=== PATIENT | female | born 1950 | race Caucasian/White ===

== ENCOUNTER 2023-02-12 07:02 | Outpatient (OUT) | payer MEDICARE, SELFPAY ==
[2023-02-12 07:32] LABS: Basophils Percent Auto 0.8 % (0.2-2.0); Eosinophils Absolute Auto 0.2 10^3/uL (0.0-0.7); Eosinophils Percent Auto 4.3 % (0.9-7.0); Hematocrit 35.6 % (36.0-48.0); Hemoglobin 11.6 g/dL (12.0-16.0); Immature Granulocytes Abs Auto 0.01 10^3/uL (0.00-0.03); Immature Granulocytes Pct Auto 0.3 % (0.0-0.5); Lymphocytes Absolute Auto 1.3 10^3/uL (1.2-3.8); Lymphocytes Percent Auto 32.6 % (20.5-60.0); Mean Corpuscular HGB Conc 32.6 g/dL (29.9-35.2); Mean Corpuscular Hemoglobin 30.7 pg (26.7-34.0); Mean Corpuscular Volume 94.2 fL (81.0-99.0); Mean Platelet Volume 9.3 fL (9.5-13.5); Monocytes Absolute Auto 0.5 10^3/uL (0.3-0.8); Monocytes Percent Auto 13.3 % (1.7-12.0); Neutrophils Percent Auto 48.7 % (43.0-75.0); Platelet Count 262 10^3/uL (150-450); Red Blood Count 3.78 10^6/uL (4.20-5.40); Red Cell Distribution Width 13.3 % (11.0-15.0)
[2023-02-12 08:23] LABS: Alanine Aminotransferase 27 U/L (14-59); Albumin Level 3.5 g/dL (3.4-5.0); Alkaline Phosphatase 66 U/L (46-116); Anion Gap 10.1; Aspartate Amino Transferase 20 U/L (15-37); BUN Creatinine Ratio 31.2; Bilirubin Total 0.7 mg/dL (0.2-1.0); Calcium 9.2 mg/dL (8.5-10.1); Carbon Dioxide 31.8 mmol/L (21.0-32.0); Chloride 103 mmol/L (98-107); Chol HDL Ratio 2.8; Cholesterol 219 mg/dL (<=200); Estimated GFR (African America >60 (>=60); Estimated GFR (Non-African Ame >60 (>=60); Globulin 3.4 g/dL; Glucose 99 mg/dL (74-106); HDL Cholesterol 77 mg/dL (40-60); Potassium 3.9 mmol/L (3.5-5.1); Sodium 141 mmol/L (136-145); Thyroid Stimulating Hormone 4.007 uIU/mL (0.358-3.740); Total Protein 6.9 g/dL (6.4-8.2); Triglycerides 63 mg/dL (<=150); VLDL CHOLESTEROL 12.6 mg/dL
[2023-02-12 09:07] LABS: Estimated Average Glucose 111 mg/dL; Glycohemoglobin A1C 5.5 % (4.5-6.2)
[2023-02-12 09:38] LABS: Free T4 1.03 ng/dL (0.76-1.46)
[2023-02-12 11:29] LABS: Occult Blood Positive
== END 2023-02-12 07:03 | disposition home or self-care (01) ==
LOC: LAB 07:06
PROVIDERS: PCP Family Medicine; Visit Provider Family Medicine
DX: E78.2 Mixed hyperlipidemia (principal); E03.9 Hypothyroidism, unspecified; R73.09 Other abnormal glucose; R53.82 Chronic fatigue, unspecified; Z12.11 Encounter for screening for malignant neoplasm of colon
CPT/HCPCS: 36415; 80053; 80061; 83036; 84439; 84443; 85025; G0328

== ENCOUNTER 2023-05-27 10:18 | Outpatient (OUT) | payer MEDICARE, SELFPAY ==
--- NOTE | 2023-05-27 10:36 | XR_ITS ---
The [address] [address] Patient Name: KAYLIE BARBER MRN: [id number] date: 1950 Sex: F Assigned Patient Location: RAD Current Patient Location: RAD Accession/Order Number: [id number] Exam Date: 05/27/2023 10:38 Report Date: 05/27/2023 11:08 At the request of: ERICA CATHERINE Procedure: XR chest 2V PROCEDURE: XR chest 2V DATE: 05/27/2023 9:38 AM CDT COMPARISONS: CT chest 07/26/2021 CLINICAL INDICATION: 73 years Female Acute Bronchiolitis J21.9 FINDINGS: The cardiomediastinal silhouette and pulmonary vasculature are within normal limits. The lungs are clear. There is no evidence of pleural effusion or pneumothorax. Large hiatal hernia overlies the lower mediastinum XR/XR chest 2V IMPRESSION: No evidence of consolidating infiltrates to suggest pneumonia. Hiatal hernia, stable. Electronically authenticated by: NURY VELAZQUEZ Date: 05/27/2023 11:08
== END 2023-05-27 10:19 | disposition home or self-care (01) ==
PROVIDERS: PCP Family Medicine; Visit Provider Family Medicine
DX: J21.9 Acute bronchiolitis, unspecified (principal); K44.9 Diaphragmatic hernia without obstruction or gangrene
CPT/HCPCS: 71046

== ENCOUNTER 2024-03-17 11:41 | Outpatient (OUT) | payer MEDICARE, SELFPAY ==
[2024-03-17 12:16] LABS: Basophils Percent Auto 0.5 % (0.2-2.0); Eosinophils Absolute Auto 0.1 10^3/uL (0.0-0.7); Hematocrit 36.3 % (36.0-48.0); Hemoglobin 11.8 g/dL (12.0-16.0); Immature Granulocytes Abs Auto 0.01 10^3/uL (0.00-0.03); Immature Granulocytes Pct Auto 0.2 % (0.0-0.5); Lymphocytes Percent Auto 24.5 % (20.5-60.0); Mean Corpuscular HGB Conc 32.5 g/dL (29.9-35.2); Mean Corpuscular Hemoglobin 30.6 pg (26.7-34.0); Mean Platelet Volume 9.7 fL (9.5-13.5); Monocytes Absolute Auto 0.4 10^3/uL (0.3-0.8); Monocytes Percent Auto 10.1 % (1.7-12.0); Neutrophils Absolute Auto 2.5 10^3/uL (1.4-6.5); Neutrophils Percent Auto 61.7 % (43.0-75.0); Platelet Count 293 10^3/uL (150-450); Red Blood Count 3.86 10^6/uL (4.20-5.40); Red Cell Distribution Width 13.2 % (11.0-15.0)
[2024-03-17 12:31] LABS: Estimated Average Glucose 120 mg/dL; Glycohemoglobin A1C 5.8 % (4.5-6.2)
[2024-03-17 12:41] LABS: Free T4 1.09 ng/dL (0.76-1.46)
[2024-03-17 13:05] LABS: Alanine Aminotransferase 26 U/L (14-59); Albumin Globulin Ratio 1.2; Albumin Level 3.7 g/dL (3.4-5.0); Alkaline Phosphatase 67 U/L (46-116); Anion Gap 12.3; Aspartate Amino Transferase 22 U/L (15-37); BUN Creatinine Ratio 24.3; Bilirubin Total 0.8 mg/dL (0.2-1.0); Calcium 9.3 mg/dL (8.5-10.1); Carbon Dioxide 30.2 mmol/L (21.0-32.0); Chloride 102 mmol/L (98-107); Chol HDL Ratio 3.1; Cholesterol 217 mg/dL (<=200); Estimated GFR (African America >60 (>=60); Estimated GFR (Non-African Ame >60 (>=60); Globulin 3.2 g/dL; Glucose 98 mg/dL (74-106); HDL Cholesterol 70 mg/dL (40-60); Potassium 4.5 mmol/L (3.5-5.1); Sodium 140 mmol/L (136-145); Thyroid Stimulating Hormone 2.661 uIU/mL (0.358-3.740); Total Protein 6.9 g/dL (6.4-8.2); Triglycerides 80 mg/dL (<=150)
== END 2024-03-17 11:42 | disposition home or self-care (01) ==
LOC: LAB 11:43
PROVIDERS: PCP Family Medicine; Visit Provider Family Medicine
DX: E78.2 Mixed hyperlipidemia (principal); E78.5 Hyperlipidemia, unspecified; R73.09 Other abnormal glucose
CPT/HCPCS: 36415; 80053; 80061; 83036; 84439; 84443; 85025

== ENCOUNTER 2024-04-25 22:20 | Emergency (ER) | payer MEDICARE, SELFPAY ==
[2024-04-25 22:25] VITALS: BP 159/67; PULSE 72; TEMP 36.4; O2SAT 96; BMI 23.0
--- OUTSIDE RECORDS SUMMARY | 2024-04-25 22:28 | XMS_ITS | CCD ---
Author Organization [facility] CliniSyga Care Team Providers Care Vac Press Operator Name Role Phone FIDELINA, DR MALDONADO Primary Care Unavailable LINDA MCCALL Consulting Unavailable LINDA MCCALL Admitting Unavailable LINDA MCCALL Attending Unavailable TOMMYY, DR MALDONADO Consulting Unavailable TOMMYY, DR MALDONADO Admitting Unavailable TOMMYY, DR MALDONADO Primary Care Unavailable FIDELINA, DR MALDONADO Attending Unavailable WEST, DR KUMAR Garcia Consulting Unavailable FIDELINA, DR MALDONADO Primary Care Unavailable FIDELINA, DR MALDONADO Admitting Unavailable FIDELINA, DR MALDONADO Attending Unavailable FIDELINA, DR MALDONADO Consulting Unavailable LEO FAJARDO Consulting Unavailable LINDA MCCALL Consulting Unavailable FIDELINA, DR MALDONADO Primary Care Unavailable LINDA MCCALL Admitting Unavailable LINDA MCCALL Attending Unavailable FIDELINA, DR MALDONADO Primary Care Unavailable FIDELINA, DR MALDONADO Admitting Unavailable FIDELINA, DR MALDONADO Attending Unavailable FIDELINA, DR MALDONADO Consulting Unavailable FIDELINA, DR MALDONADO Primary Care Unavailable FIDELINA, DR MALDONADO Admitting Unavailable FIDELINA, DR MALDONADO Attending Unavailable FIDELINA, DR MALDONADO Consulting Unavailable SAMIA, DR SHAYNA Cassidy Consulting Unavailable FIDELINA, DR MALDONADO Consulting Unavailable FIDELINA, DR MALDONADO Admitting Unavailable FIDELINA, DR MALDONADO Attending Unavailable FIDELINA, DR MALDONADO Primary Care Unavailable FIDELINA, DR MALDONADO Consulting Unavailable FIDELINA, DR MALDONADO Primary Care Unavailable FIDELINA, DR MALDONADO Admitting Unavailable FIDELINA, DR MALDONADO Attending Unavailable ZIEBER, DR SHAYNA Cassidy Consulting Unavailable FIDELINA, DR MALDONADO Consulting Unavailable FIDELINA, DR MALDONADO Admitting Unavailable FIDELINA, DR MALDONADO Primary Care Unavailable FIDELINA, DR MALDONADO Attending Unavailable Erica Kitchen Primary Care Physician Ramy PHILLIPS Attending Unavailable NILAna Cristina, Ramy Cassidy Referring Unavailable JACQUELINE, Ramy Cassidy Admitting Unavailable REFERRAL, SELF Admitting Unavailable REFERRAL, SELF Attending Unavailable REFERRAL, SELF Referring Unavailable ANTOINE TORRES Consulting Unavaila Antoinette King Consulting Unavailable Antoinette TORRES Consulting Unavailable Antoinette TORRES Consulting Unavailable Ramy PHILLIPS Attending Unavailable Erica Kitchen Referring Unavailable Ramy PHILLIPS Attending Unavailable Erica Kitchen Referring Unavailable Allergies Allergy Classification Reported Allergen(s) Allergy Type Date of Onset Reaction(s) Facility (4 sources) Penicillins; Translations: [penicillins] Drug allergy (disorder) 3 Cutaneous eruption (morphologic abnormality) [facility] Repository (3 sources) Erythromycin; Translations: [erythromycin] Drug Allergy Cutaneous eruption (morphologic abnormality) General Surgery Nill/Said [place] Medications Current Medications Medication Drug Class(es) Dates Sig (Normalized) Sig (Original) diclofenac sodium 75 mg delayed release oral tablet (2 sources) Nonsteroidal Anti-inflammatory Drug Start: 02-26-2023 take 1 tablet by mouth twice daily diclofenac sodium 75 mg Oral EC Tab 75 mg = 1 tab(s), Oral, BID, Refills(s) 0, Pain Start Date: 02/26/23 Status: Ordered ezetimibe 10 mg oral tablet (2 sources) Dietary Cholesterol Absorption Inhibitor Start: 12-25-2019 take 1 tablet by mouth once daily Zetia 10 mg Tab 10 mg = 1 tab(s), Oral, Daily, # 90 tab(s), Refills(s) 3, Pharmacy: [facility]/pharmacy #[id number], 160, cm, 08/30/19 9:30:00 EST, Height/Length Measured, 58.9, kg, 08/30/19 9:30:00 EST, Weight Measured Start Date: 12/25/19 Status: Ordered levothyroxine sodium 0.025 mg oral tablet (2 sources) l-Thyroxine Start: 02-19-2023 take 1 tablet by mouth once daily levothyroxine 25 mcg (0.025 mg) Tab 25 mcg = 1 tab(s), Oral, Daily, Refills(s) 0, Thyroid Start Date: 02/19/23 Status: Ordered pantoprazole 40 mg delayed release oral tablet (2 sources) Proton Pump Inhibitor Start: 02-26-[address] Tab 40 mg = 1 tab(s), Oral, Daily, Refills(s) 0, Control of stomach acid Start Date: 02/26/23 Status: Ordered Problems Active Problems Problem Classification Problem Date Documented Da te Episodic/Chronic Abdominal hernia (2 sources) Hiatal hernia 08-30-2019 Episodic Anxiety disorders (2 sources) Anxiety 02-03-2019 Chronic Deficiency and other anemia (3 sources) Iron deficiency anemia; Translations: [Iron deficiency anemia, unspecified] Onset: 02-26-2023 Episodic Disorders of lipid metabolism (3 sources) Hyperlipidemia, unspecified; Translations: [Hyperlipidemia] Onset: 08-14-2021 02-03-2019 Chronic Esophageal disorders (7 sources) Gastro-esophageal reflux disease without esophagitis; Translations: [Gastroesophageal reflux disease without esophagitis] Onset: 08-14-2021 Resolved: 02-03-2019 Chronic Malaise and fatigue (4 sources) Fatigue Resolved: 02-03-2019 04-12-2019 Episodic Osteoarthritis (1 source) Bilateral primary osteoarthritis of hip; Translations: [BILATERAL PRIM OSTEOARTHRITIS HIP] Onset: 03-17-2022 Chronic Other bone disease and musculoskeletal deformities (2 sources) Osteopenia 05-17-2019 Episodic Other gastrointestinal disorders (1 source) Abnormal feces; Translations: [Other fecal abnormalities] Onset: 02-26-2023 Episodic Other gastrointestinal disorders (2 sources) Occult blood in stools 02-26-2023 Episodic Other non-traumatic joint disorders (3 sources) Pain in unspecified hip; Translations: [PAIN IN UNSPECIFIED HIP] Onset: 03-12-2022 Episodic Other non-traumatic joint disorders (1 source) Pain in right hip; Translations: [PAIN IN RIGHT HIP] Onset: 03-17-2022 Episodic Other upper respiratory infections (1 source) Chronic sinusitis, unspecified; Translations: [CHRONIC SINUSITIS UNSPECIFIED] Onset: 12-23-2021 Chronic Thyroid disorders (2 sources) Hypothyroidism 02-19-2023 Chronic Unclassified (3 sources) CONTACT W/AND (SUSP) EXPOS COVID-19; Translations: [CONTACT W/AND (SUSP) EXPOS COVID-19] Onset: 12-23-2021 Unclassified (1 source) OTHER SPECIFIED COUGH; Translations: [OTHER SPECIFIED COUGH] Onset: 07-19-2021 Unclassified (2 sources) Body mass index 20-24 - normal 02-26-2023 Past or Other Problems Problem Classification Problem Date Documented Da te Episodic/Chronic Acute bronchitis (4 sources) Acute bronchitis, unspecified; Translations: [ACUTE BRONCHITIS UNSPECIFIED] Onset: 07-19-2021 Episodic Allergic reactions (2 sources) Contact dermatitis due to poison saúl Resolved: 02-03-2019 04-03-2019 Episodic Deficiency and other anemia (1 source) Anemia, unspecified; Translations: [ANEMIA UNSPECIFIED] Onset: 08-14-2021 Episodic Diabetes mellitus without complication (1 source) Other abnormal glucose; Translations: [OTHER ABNORMAL GLUCOSE] Onset: 08-14-2021 Episodic Diverticulosis and diverticulitis (2 sources) Diverticula of intestine Resolved: 02-03-2019 04-03-2019 Chronic Fever of unknown origin (1 source) Fever, unspecified; Translations: [FEVER UNSPECIFIED] Onset: 07-19-2021 Episodic Immunizations and screening for infectious disease (2 sources) Exposure to Hepatitis C virus Resolved: 02-03-2019 04-12-2019 Episodic Menopausal disorders (6 sources) Other primary ovarian failure; Translations: [Decreased estrogen level] Onset: 08-13-2021 Resolved: 02-03-2019 Chronic Nonmalignant breast conditions (2 sources) Breast lump Resolved: 03-24-2012 04-12-2019 Episodic Comment on above: right breast Other bone disease and musculoskeletal deformities (1 source) Other specified disorders of bone density and structure, unspecified site; Translations: [OTH D/O BONE DEN STRUCT UNS SITE] Onset: 08-14-2021 Episodic Other gastrointestinal disorders (2 sources) Dysphagia Resolved: 02-03-2019 04-03-2019 Episodic Other nervous system disorders (2 sources) Tremor Resolved: 02-03-2019 04-03-2019 Episodic Other screening for suspected conditions (not mental disorders or infectious disease) (7 sources) Abnormal findings on diagnostic imaging of other parts of musculoskeletal system; Translations: [Encounter for screening for malignant neoplasm of rectum] Onset: 08-14-2021 Resolved: 02-03-2019 Episodic Other skin disorders (4 sources) Localized swelling, mass and lump, trunk; Translations: [LOCALIZD SWELLING MASS AND LUMP TRUNK] Onset: 07-26-2021 Episodic Other upper respiratory disease (2 sources) Allergic rhinitis Resolved: 02-03-2019 04-12-2019 Chronic Other upper respiratory infections (2 sources) Acute maxillary sinusitis Resolved: 04-03-2019 04-12-2019 Episodic Prolapse of female genital organs (2 sources) Cystocele Resolved: 02-03-2019 04-12-2019 Chronic Residual codes; unclassified (1 source) Asymptomatic menopausal state; Translations: [ASYMPTOMATIC MENOPAUSAL STATE] Onset: 08-14-2021 Episodic Residual codes; unclassified (2 sources) Postmenopausal state Resolved: 02-03-2019 04-12-2019 Episodic Unclassified (1 source) CONTACT W/AND (SUSP) EXPOS COVID-19; Translations: [CONTACT W/AND (SUSP) EXPOS COVID-19] Onset: 12-19-2021 Results Test Name Value Interpretation Reference Range Facility [place] Mamm Screen w/CAD if perf and 3D [place] 07-14-2023 MA Mamm Screen w/CAD if perf and 3D [place] Exam Date/Time: 07/12/2023 11:41 EST Reason for Exam: SCREENING Report IMPRESSION: BIRADS 1 NEGATIVE, NORMAL INTERVAL FOLLOW-UP.12 MONTH RECALL. CLINICAL HISTORY: SCREENING. COMPARISON: 07/09/2022. COMMENT: Routine views and tomosynthesis views of both breasts were obtained. The breasts are heterogeneously dense, which may obscure small masses. No dominant breast mass nor neoplastic calcifications are noted. There has been no significant change when compared to the prior exam. The examination was reviewed with Computer Aided Detection. Breast Density: Yes Mammography is very important to your health. The current [employer] and National [employer] guidelines recommends annual mammography beginning at age 40. This facility utilizes a reminder system to ensure all patients receive reminder notifications at the appropriate time based on the recommendations of this exam. Board Certified Radiologists. Accredited by the ACR and FDA. Ordering Provider: REFERRAL, SELF FINAL REPORT Dictated: 07/14/2023 12:50 pm James Ennis M.D. Signed (Electronic Signature): 07/14/2023 12:50 pm Signed by: James Ennis M.D. Transcribed by: ILENE Technologist: SELMA Assessment: BI-RADS Category 1-Negative Recommendation: Normal interval follow-up Normal [facility] Consent for Treatmenton 06-24 Consent for Treatment [id number] Normal [facility] IntraOperative Documentson 0 03-26-2023 IntraOperative Documents [id number]#[id number]:127 Normal [facility] Main OR Intraoperative Recor don 2023 Main OR Intraoperative Record IntraOp Document Type FT Summary Primary Physician: Ramy PHILLIPS MD Finalized Date/Time: 03/23/23 08:15:15 Pt. Name: KAYLIE BARBER /Sex: 1950 Female Med Rec #: [id number] Physician: Ramy PHILLIPS MD Financial #: [id number] Pt. Type: O Room/Bed: Endo 10/21 Admit/Disch: 03/19/23 09:17:02 - 03/19/23 11:20:00 Institution: Case Times FT Entry 1 Patient Times In Room 03/19/23 10:19:00 Out Room 03/19/23 10:49:00 Procedure Times Start 03/19/23 10:22:00 Stop 03/19/23 10:47:00 Anesthesia Times Start 03/19/23 10:19:00 Stop 03/19/23 10:49:00 Time at [place] 03/19/23 10:39:00 Last Modified By: Cecil ELIZONDO, Lana Mccullough 03/19/23 10:47:34 General Comments: EGD stop time at 1024./WILIANRN Colonoscopy start at 1027./CARO CEDENO 03/23/23 Chart opened to review and send charges [facility] CSFA Case Attendance FT Entry 1 Entry 2 Entry 3 Case Attendee Rosanna MORLEY, Eusebio Jacob RN, Jaja Faith Role Performed Anesthesiologist Grab Operator - Primary Staff - Other Promotion Producer Time In 03/19/23 10:19:00 03/19/23 10:19:00 03/19/23 10:19:00 Time Out 03/19/23 10:49:00 03/19/23 10:49:00 03/19/23 10:49:00 Procedure EGD AND COLONOSCOPY(.) EGD AND COLONOSCOPY(.) EGD AND COLONOSCOPY(.) Comments Dr. Rasmussen is supervising Last Modified By: Cecil ELIZONDO, Lana Jacob RN, Lana Jacob RN, Lana Mccullough 03/19/23 10:47:40 03/19/23 10:47:40 03/19/23 10:47:40 Entry 4 Entry 5 Case Attendee Flavia Vicente MD, Ramy Cassidy Role Performed Scrub - Primary Surgeon - Primary Time In 03/19/23 10:19:00 03/19/23 10:19:00 Time Out 03/19/23 10:49:00 03/19/23 10:49:00 Procedure EGD AND COLONOSCOPY(.) EGD AND COLONOSCOPY(.) Comments Last Modified By: Lana Jacob RN, RN, Kristin N 03/19/23 10:47:40 03/19/23 10:47:40 Perioperative Protocols FT Pre-Care Text: Implements protective measures prior to operative or invasive procedure, confirms identity before the operative or invasive procedure, verifies operative procedure, surgical site, and laterality Entry 1 Procedure(s) EGD AND COLONOSCOPY(.) Patient Identity Birthday, ID Band Verified (select at Check, Patient least 2): Participation Consents / H and P Anesthesia Consent, Operative Site N/A Verified HandP, Surgery/Procedure Marking Verified Consent Surgical Site No Laterality Verified n/a Verified Procedure Verified Yes Correct Patient Yes Position Verified Availability Equipment, Medication Prep Dry n/a Verified (If Applicable) PreOp Antibiotic No Time Out Eusebio Burroughs Given Participants Cecil Kinney RN, Abdelrahman Taveras Kirstyn K, Sparks, Micala E, NILL MD, Ramy Cassidy Time Out Complete 03/19/23 10:19:00 Outcomes Met? Yes Last Modified By: Lana Jacob RN 03/19/23 10:21:04 Post-Care Text: The patient is free from signs and symptoms of injury caused by extraneous objects Allergy Information FT Pre-Care Text: Verifies allergies Entry 1 Allergies Reviewed? Yes Allergies Reviewed Self/Patient With Outcomes Met? Yes Last Modified By: Lana Jacob RN 03/19/23 10:21:10 Post-Care Text: The patient received appropriate medication(s) safely administered during the perioperative period Surgical Procedures FT Entry 1 Procedure Description Procedure EGD AND COLONOSCOPY Modifiers . Surgeon Description EGD. Colonoscopy. Primary Procedure Yes Primary Surgeon Ramy PHILLIPS MD Start 03/19/23 10:22:00 Stop 03/19/23 10:47:00 Anesthesia Type General Surgical Service General Wound Class 2 - Clean-Contaminated Last Modified By: Lana Jacob RN 03/19/23 10:47:36 General Case Data FT Pre-Care Text: Classifies surgical wound, implements aseptic technique, initiates traffic control Entry 1 Case Information OR ENDO 1 FT Case Level Level 2 Wound Class 2 - Clean-Contaminated Specialty General ASA Class 2 Preop Diagnosis Occult stool, anemia Postop Same As Preop No Postop Diagnosis EGD- Large Hiatal Outcomes Met? Yes Hernia. Colonoscopy- Diverticulosis. Last Modified By: Lana Jacob RN 03/19/23 10:47:07 Post-Care Text: The patient is free from signs and symptoms of infection Skin Assessment (Pre Procedure) FT Pre-Care Text: Implements protective measures to prevent skin/ tissue injury due to thermal or mechanical sources Evaluates for signs and symptoms of physical injury to skin and tissue Entry 1 Skin Integrity Intact, [place], Warm, and Skin Abnormality Yes Dry Outcomes Met? Yes Last Modified By: Lana Jacob RN 03/19/23 10:22:00 Post-Care Text: The patient is free from signs and symptoms of injury caused by extraneous objects Patient Positioning FT Pre-Care Text: Identifies physical alterations that require additional precautions for procedure-specific positioning, verifies presence of prosthetics or corrective devices, positions the patient, evaluates the patient for signs and sym (more content not included)... Normal [facility] Reminderson 2023 Reminders - From: Tanna Owens LPN To: N - Clinical; Sent: 2023 08:58:45 EDT Show up: 02/17/2033 07:00:00 EDT Subject: colonoscopy recall Due Date/Time: 03/19/2033 07:00:00 EDT Reminder/Recall Patient due for screening colonoscopy 03/19/2033. Normal [facility] Consenton 03-22-2023 Consent [id number]:127 [facility] Discharge Instructionson Discharge Instructions [id number]#1.00CD:127 [facility] Postoperative Documentson Postoperative Documents [id number]#[id number]:127 Normal [facility] Colonoscopy Procedure Report on 03-19-2023 Colonoscopy Procedure Report Patient: KAYLIE BARBER Age: 72 years Sex: Female : 1950 Associated Diagnoses: None Author: Ramy PHILLIPS MD Pre-Procedure Procedure Date 03/19/2023 11:10:00 . Procedure Type: Colonoscopy. Procedure provider Performed by Ramy PHILLIPS MD. Referred by Erica Kitchen MD. Current history and physical Documented on chart. Colorectal neoplasm risk assessment Average risk. Informed Consent After discussing the rationale, risks and benefits, and alternatives to this procedure, the patient provided signed consent for the procedure. Pre-procedure diagnosis: Iron deficiency anemia, unexplained. ASA Classification: Class III. . Monitoring: See anesthesia record. . Procedure The procedure was performed in the hospital. See anesthesia record for sedation given during procedure. Rectal exam was performed and was normal. The patient was positioned starting in the left lateral decubitus position. Endoscope type used was an adult-size. The endoscope was lubricated then introduced through the anus. The scope was advanced to the cecum verified by photographing the appendiceal orifice, verified by photographing the ileocecal valve. No difficulties encountered during the procedure. The bowel preparation quality was good and was adequate (see polyps greater than or equal to 6 millimeters). The patient tolerated the procedure well. Findings Diverticulosis was identified in the sigmoid colon. The severity of the diverticulosis is moderate. Images Procedure images: Rec_hd_video_ [id number] Rec_hd_video_ [id number].jpg ileocecal valve appendiceal orifice Rec_hd_video_ [id number].jpg . Post-Procedure Complications: none. Estimated blood loss: none. Specimens: none. Devices/ implants: none left in place. Impression and Plan Diagnosis: Colon, diverticulosis (UOH10-NL K57.30, Discharge, Medical). Course: Progressing as expected. Recommendations: Repeat colonoscopy:: In 10 years. Follow-up:: if problems/questions.. Diet:: Regular diet. Medication resumption:: Continue current medications. Return to activities:: After 24 hours. Education and Follow-up: Counseled: Family. [facility] Comment on above: Other Comment: Nicole moyer Attachment - attachment storage system not supported [id number] Can be viewed in source systemMissing Attachment - attachment storage system not supported [id number] Can be viewed in source systemMissing Attachment - attachment storage system not supported [id number] Can be viewed in source systemMissing Attachment - attachment storage system not supported [id number] Can be viewed in source systemMissing Attachment - attachment storage system not supported [id number] Can be viewed in source system Consent for Treatmenton 02-21 Consent for Treatment [id number]#[id number]:127 [facility] Discharge Instructionson Discharge Instructions KAYLIE BARBER :1950 Visit Date:03/19/2023 Inpatient Discharge Instructions Your Care Team Admitting Physician - Ramy PHILLIPS MD Referring Physician - JACQUELINE ANTHONY, Ramy Cassidy Reason for Your Visit OCULT STOOL & ANEMIA Your Diagnosis Colon, diverticulosis Hernia, hiatal This Is Your Medications List diclofenac (diclofenac sodium 75 mg Oral EC Tab) ezetimibe (Zetia 10 mg Tab) levothyroxine (levothyroxine 25 mcg (0.025 mg) Tab) pantoprazole (Pantoprazole [address] Tab) Procedure History Colonoscopy (03/19/2023), Esophagogastroduodenoscopy (03/19/2023), EGD - Esophagogastroduodenoscopy (12/05/2018), Total hysterectomy via vaginal approach (1994), Colonoscopy, Colonoscopy, laporoscopy, Tonsillectomy. What to do next Instructions From Your Doctor Event Name Event Result Discharge Activity Resume normal activities in 24 hours, Arrange for a responsible adult supervision for 24 hours Discharge Restrictions No driving for 24 hrs, Do not operate machinery or tools, Do not make important decisions for 24 hours, Do not drink alcoholic beverages for 24 hours Discharge Diet(s) Other: high fiber Call Your Doctor For Persistent or heavy bleeding, Temperature above 101.5 degrees, Redness, swelling, or pus at operative site, Severe pain at the operative site, Persistent vomiting Pharmacy Information [facility] Discharge Instructions Discharge Instructions New Follow Up Appointments after Discharge Follow Up with Ramy PHILLIPS When: Only if needed Where: [facility] [address], [address] [place] [id number]- Business (1) Medications What How Much When Instructions Next Dose Unchanged diclofenac (diclofenac sodium 75 mg Oral EC Tab) 1 Tablets By Mouth 2 times a day Unchanged ezetimibe (Zetia 10 mg Tab) 1 Tablets By Mouth Every day Unchanged levothyroxine (levothyroxine 25 mcg (0.025 mg) Tab) 1 Tablets By Mouth Every day Unchanged pantoprazole (Pantoprazole [address] Tab) 1 Tablets By Mouth Every day Test Results No qualifying data available. Allergies Erythromycin ES (Rash) penicillins (Rash) Problems Ongoing - Any problem that you are currently receiving treatment for. Anxiety BMI 23.0-23.9, adult Chronic fatigue Hiatal hernia with gastroesophageal reflux Hyperlipidemia Hypothyroidism Iron deficiency anemia Osteopenia Positive fecal occult blood test Historical - Any problem that you are no longer receiving treatment for. Abnormal Pap smear of vagina Acute maxillary sinusitis Allergic rhinitis Asymptomatic postmenopausal state Breast mass Chronic GERD Diverticulosis Dysphagia Estrogen deficiency Exposure to hepatitis C Fatigue Female cystocele Hernia, hiatal Poison saúl Tremor Education Materials Endoscopy Care After Procedure Please read the instructions outlined below and refer to this sheet in the next few weeks. These discharge instructions provide you with general information on caring for yourself after you leave the hospital. Your doctor may also give you specific instructions. While your treatment has been planned according to the most current medical practices available, unavoidable complications occasionally occur. If you have any problems or questions after discharge, please call your doctor. ACTIVITY ? You may resume your regular activity but move at a slower pace for the next 24 hours. ? Take frequent rest periods for the next 24 hours. ? Walking will help expel (get rid of) the air and reduce the bloated feeling in your abdomen. ? No driving for 24 hours (because of the anesthesia (medicine) used during the test). ? You may shower. ? Do not sign any important legal documents or operate any machinery for 24 hours (because of the anesthesia used during the test). NUTRITION ? Drink plenty of fluids. ? You may resume your normal diet. ? Begin with a light meal and progress to your normal diet. ? Avoid alcoholic beverages for 24 hours or as instructed by your caregiver. MEDICATIONS ? You may resume your normal medications unless your caregiver tells you otherwise. WHAT YOU CAN EXPECT TODAY ? You may experience abdominal discomfort such as a feeling of fullness or ?gas? pains. FOLLOW-UP ? Your doctor will discuss the results of your test with you. SEEK IMMEDIATE MEDICAL ATTENTION IF ANY OF THE FOLLOWING OCCUR: ? Excessive nausea (feeling sick to your stomach) and/or vomiting. ? Severe abdominal pain and distention (swelling). ? Trouble swallowing. ? Temperature over 100 F (37.8? C). ? Rectal bleeding or vomiting of blood. Document Released: 2005 Document Re-Released: 01/31/2007 ExitCare? Patient Information ?2009 Critical Links. Colonoscopy Care After Surgery Please read the instructions outlined below and refer to this sheet in the next few weeks. These d (more content not included)... Normal [facility] Comment on above: Result Comment: Elec tronically Signed By: Abdoul ELIZONDO, Meliza Benton\.br\Date and Time Signed: 03/19/23 11:00 EDT Daniel 03-19-2023 Esophagogastroduodenoscop y Patient: KAYLIE BARBER Age: 72 years Sex: Female : 1950 Associated Diagnoses: None Author: Ramy PHILLIPS MD Pre-Procedure Procedure Date 03/19/2023 11:15:00 . Procedure Type: Esophagogastroduodenoscopy . Procedure provider Performed by Ramy PHILLIPS MD. Referred by Erica Kitchen MD. Current history and physical Documented on chart. Pre-procedure diagnosis: iron deficiency anemia. ASA Classification: Class III. . Monitoring: See anesthesia record. . Procedure The procedure was performed in the hospital. See anesthesia record for sedation given during procedure. The patient was positioned starting in the left lateral decubitus position. Endoscope type used was an adult-size, advanced to the 2nd portion of the duodenum. No difficulty was encountered during the procedure. Views were excellent. The patient tolerated the procedure well. Findings Examination of the esophagus revealed a normal esophagus. A hiatal hernia was identified 8 cm in length. The hernia is described as a sliding hernia. Examination of the duodenum revealed a normal duodenum. Images Procedure images: hiatal hernia . Post-Procedure Complications: none. Estimated blood loss: none. Impression and Plan EGD: Diagnosis: Hernia, hiatal ([id number] K44.9, Discharge, Medical). Course: Progressing as expected. Education and Follow-up: Counseled: Family. [facility] Comment on above: Other Comment: Nicole moyer Attachment - attachment storage system not supported [id number] Can be viewed in source system Inpatient Patient Summaryon 03-19-2023 Inpatient Patient Summary (Inserted Imag e. Unable to display) [address] [address] [facility] Clinical Discharge Instructions PERSON INFORMATION Name: KAYLIE BARBER PHYSICIANS Admitting Physician: Ramy PHILLIPS MD Attending Physician: Ramy PHILLIPS MD PCP: Erica Kitchen MD Discharge Diagnosis: Colon, diverticulosis; Hernia, hiatal Comment: PATIENT EDUCATION INFORMATION Instructions: Medication Leaflets: Follow up: With: Address: When: Ramy PHILLIPS [address] [facility], [address], [place] [id number] Business (1) , only if needed MEDICATION LIST Medications to Continue with No Changes Other Medications diclofenac (diclofenac sodium 75 mg Oral EC Tab) 1 Tablets By Mouth 2 times a day. ezetimibe (Zetia 10 mg Tab) 1 Tablets By Mouth every day. Refills: 3. levothyroxine (levothyroxine 25 mcg (0.025 mg) Tab) 1 Tablets By Mouth every day. pantoprazole (Pantoprazole [address] Tab) 1 Tablets By Mouth every day. Comment: [facility] Main OR PACU I Recordon 02-21 Main OR PACU I Record PACU Phase I Docum ent Type FT Summary Primary Physician: Ramy PHILLIPS MD Finalized Date/Time: 03/19/23 11:32:06 Pt. Name: KAYLIE BARBER Marleny Rea/Sex: 1950 Female Med Rec #: [id number] Physician: Ramy PHILLIPS MD Financial #: [id number] Pt. Type: O Room/Bed: [facility] 10/21 Admit/Disch: 03/19/23 09:17:02 - 03/19/23 11:20:00 Institution: Case Times PACU I FT Pre-Care Text: Identifies barriers to communication and implements measures to provide psychological support Develops individualized plan of care, and ensures continuity of care Maintains patient's dignity and privacy, and maintains patient confidentiality Identifies and reports philosophical, cultural, and spiritual beliefs and values Identifies individual values and wishes concerning care Implements aseptic technique, and administers prescribed antibiotic therapy and immunizing agents as ordered Evaluates postoperative tissue perfusion Implements thermoregulation measures, and monitors body temperature Evaluates postoperative respiratory status Evaluates postoperative cardiac status Evaluates postoperative neurological status Assesses pain control, collaborated in initiating patient-controlled analgesia and implements alternative methods of pain control Verifies allergies, administers prescribed medications and solutions, evaluates response to medications Entry 1 In PACU I 03/19/23 10:50:00 Discharge from PACU 03/19/23 11:20:00 I Outcomes Met? Yes Last Modified By: Abdoul ELIZONDO, Meliza Benton 03/19/23 11:31:52 Post-Care Text: The patient demonstrates knowledge of the expected response to the operative or invasive procedure The patient's care is consistent with the individualized perioperative plan of care The patient's right to privacy is maintained The patient's value system, lifestyle, ethnicity, and culture are considered, respected, and incorporated into the perioperative plan of care The patient participates in decisions affecting his or her perioperative plan of care The patient is free from signs and symptoms of infection The patient has wound/tissue perfusion consistent with or improved from baseline levels established preoperatively The patient is at or returning to normothermia at the conclusion of the immediate postoperative period The patient's respiratory function is consistent with or improved from baseline levels established preoperatively The patient's cardiovascular status is consistent with or improved from baseline levels established preoperatively The patient's cardiovascular status is consistent with or improved from baseline levels established preoperatively The patient demonstrates and/or reports adequate pain control throughout the perioperative period The patient received appropriate medication(s), safely administered during the perioperative period Acuity Level PACU I FT Entry 1 Start Time 03/19/23 10:50:00 Stop Time 03/19/23 11:20:00 Acuity Level Acuity Level I Last Modified By: Meliza Schreiber RN 03/19/23 11:32:02 Finalized By: Meliza Schreiber RN Document Signatures Signed By: Meliza Schreiber RN 03/19/23 11:32 [facility] Main OR Preoperative Recordo n 03-19-2023 Main OR Preoperative Record Holding Area Document Type FT Summary Primary Physician: Ramy PHILLIPS MD Finalized Date/Time: 03/19/23 09:35:37 Pt. Name: KAYLIE BARBER /Sex: 1950 Female Med Rec #: [id number] Physician: Ramy PHILLIPS MD Financial #: [id number] Pt. Type: O Room/Bed: Endo 10/21 Admit/Disch: 03/19/23 09:17:02 - Institution: Case Times Holding FT Pre-Care Text: Verifies consent for planned procedure, identifies individual values and wishes concerning care, includes family members in perioperative teaching Secures patient's records' belongings, and valuables, maintains patient's dignity and privacy, and maintains patient confidentiality Entry 1 In Holding 03/19/23 09:20:00 Outcomes Met? Yes Last Modified By: Steffanie Chinchilla RN 03/19/23 09:22:45 Post-Care Text: The patient participates in decisions affecting his or her perioperative plan of care The patient's right to privacy is maintained Surgery Checklist FT Entry 1 Patient Birthday, ID Band Procedure History and Physical, Identification: Check, Patient Verification: Surgical Consent, With Participation Patient NPO after Midnight: Yes Results Reviewed Light yellow Comments: Personal Items: Glasses, Jewelry Personal Items Glassess, earrings, Comment: rings Limitations: Vision Complaints of Pain: No Pain Comment: Denies Operative Site n/a Marking: Availability Equipment Verified: Does Patient Smoke No Patient states Yes Comment - Adult Leo- postop adult Supervision supervision available Case Cancelled in No Holding Area see comments below for reason Last Modified By: Steffanie Chinchilla RN 03/19/23 09:23:50 General Comments: Pt completed prep before midnight and remained NPO since/WILIANRN Finalized By: Steffanie Chinchilla RN Document Signatures Signed By: Steffanie Chinchilla RN 03/19/23 09:35 [facility] Outpatient Surgery Discharge Instructionon 03-19-2023 Outpatient Surgery Discharge Instruction [place] [id number] Patient Discharge Instructions PERSON INFORMATION Name: KAYLIE BARBER Date of : 1950 Current Date: 03/19/2023 10:49:39 PHYSICIANS Admitting Physician: Ramy PHILLIPS MD Discharge Diagnosis: Colon, diverticulosis; Hernia, hiatal KAYLIE BARBER has been given the following list of follow-up instructions, prescriptions, and patient education materials: PATIENT FOLLOW-UP INFORMATION Diet: Other: high fiber Discharge Activity: Resume normal activities in 24 hours, Arrange for a responsible adult supervision for 24 hours Discharge Restrictions: No driving for 24 hrs, Do not operate machinery or tools, Do not make important decisions for 24 hours, Do not drink alcoholic beverages for 24 hours Call Your Doctor For: Persistent or heavy bleeding, Temperature above 101.5 degrees, Redness, swelling, or pus at operative site, Severe pain at the operative site, Persistent vomiting IF UNABLE TO CONTACT YOUR PHYSICIAN AND YOU FEEL IT IS AN EMERGENCY, GO TO THE NEAREST EMERGENCY ROOM OR CALL 911 ISUNIL KERRYLIN H, have received the attached patient education materials/instructions and have verbalized understanding: May we do a follow up call? Yes No I was present when discharge instructions were given ____ Patient Signature _ Date Clinican/Nurse Signature Date Follow up: With: Address: When: Ramy Vogel, [address], [facility] [address] [place] [address] Business (1) , only if needed Pharmacy Information: [facility] Red You may receive a survey from [employer] asking you to rate your care experience. Your feedback is important and will help us understand what we do well and how we can improve the quality of care we provide to you, your loved ones and our community. It?s an honor to serve you. Thank you for choosing [facility] HERE ARE THE MEDICATION CHANGES THAT OCCURRED DURING YOUR HOSPITAL STAY Medications to Continue with No Changes Other Medications diclofenac (diclofenac sodium 75 mg Oral EC Tab) 1 Tablets By Mouth 2 times a day. ezetimibe (Zetia 10 mg Tab) 1 Tablets By Mouth every day. Refills: 3. levothyroxine (levothyroxine 25 mcg (0.025 mg) Tab) 1 Tablets By Mouth every day. pantoprazole (Pantoprazole [address] Tab) 1 Tablets By Mouth every day. PATIENT EDUCATION INFORMATION Instructions: Medication Leaflets: [facility] Progress Note-Physicianon Progress Note-Physician Patient: Annie BARBER Age: 72 years Sex: Female : 1950 Associated Diagnoses: None Author: Jose Eduardo Rasmussen Jr., DO Postoperative Information Postoperative disposition: Postoperative disposition: Home. Optimetrix number: Optimetrix number [id number]. Anesthetic utilized: General. Physical Examination Vital Signs 03/19/2023 11:15 EDT Heart Rate Monitored 68 bpm Respiratory Rate Monitored 15 br/min Systolic Blood Pressure 104 mmHg Diastolic Blood Pressure 67 mmHg SpO2 96 % 03/19/2023 11:05 EDT Heart Rate Monitored 70 bpm Respiratory Rate Monitored 19 br/min Systolic Blood Pressure 97 mmHg Diastolic Blood Pressure 63 mmHg SpO2 95 % 03/19/2023 11:00 EDT Heart Rate Monitored 69 bpm Respiratory Rate Monitored 15 br/min Systolic Blood Pressure 96 mmHg Diastolic Blood Pressure 51 mmHg LOW SpO2 94 % 03/19/2023 10:55 EDT Heart Rate Monitored 74 bpm Respiratory Rate Monitored 11 br/min Systolic Blood Pressure 87 mmHg LOW Diastolic Blood Pressure 48 mmHg LOW SpO2 93 % 03/19/2023 10:50 EDT Temperature Temporal Artery 36.6 DegC Heart Rate Monitored 72 bpm Respiratory Rate Monitored 16 br/min Systolic Blood Pressure 87 mmHg LOW Diastolic Blood Pressure 45 mmHg LOW SpO2 94 % Pain Assessment: Controlled. General: Awake, Alert, Appropriate. Respiratory: Adequate air exchange, Non-labored. Cardiovascular: Stable, Normal peripheral perfusion. Neurological: Neurologic exam at baseline. No changes.. Assessment Anesthetic outcome No anesthetic complications noted. No nausea/vomiting. Review / Management Condition: Stable. Plan Transfer/Discharge: Transfer/Discharge Discharge when meets criteria ( From PACU to Ambulatory Surgery Unit, and To home ). [facility] Comment on above: Result Comment: Elec tronically Signed By: Jose Eduardo Rasmussen Jr., DO\.br\Date and Time Signed: 03/19/23 13:08 EDT Progress Note-Physician Patient: Annie BARBER Age: 72 years Sex: Female : 1950 Associated Diagnoses: None Author: Jose Eduardo Rasmussen Jr., DO Preoperative Information Anesthesia history: Patient history: No prior anesthetic problems. Informed consent: Signed by patient. Re-evaluation prior to induction: Initial evaluation reviewed: No significant change. Review of Systems Respiratory: Negative except as documented in history of present illness. Cardiovascular: Negative except as documented in history of present illness. Health Status Allergies: Allergic Reactions (Selected) Severity Not Documented Erythromycin ES- Rash. Penicillins- Rash., Allergies (2) Active Reaction Erythromycin ES Rash penicillins Rash Current medications: (Selected) Inpatient Medications Ordered Lactated Ringers IV Payton 1000 mL 1,000 mL: 1,000 mL, IV, 100 mL/hr, Routine, Start date 03/19/23 9:09:00 EDT, 10 hour(s), Total volume (mL): 1,000, 60.7 kg, 1.64, m2 Sodium Chloride 0.9% IV Payton 1000 mL 1,000 mL: 1,000 mL, IV, 20 mL/hr, Routine, Start date 03/19/23 6:43:00 EDT, 50 hour(s), Total volume (mL): 1,000, 60.7 kg, 1.64, m2 Prescriptions Prescribed Zetia 10 mg Tab: 10 mg = 1 tab(s), Oral, Daily, # 90 tab(s), Refills(s) 3, Pharmacy: [facility]/pharmacy #[id number], 160, cm, 08/30/19 9:30:00 EST, Height/Length Measured, 58.9, kg, 08/30/19 9:30:00 EST, Weight Measured Documented Medications Documented Pantoprazole [address] Tab: 40 mg = 1 tab(s), Oral, Daily, Refills(s) 0, Control of stomach acid diclofenac sodium 75 mg Oral EC Tab: 75 mg = 1 tab(s), Oral, BID, Refills(s) 0, Pain levothyroxine 25 mcg (0.025 mg) Tab: 25 mcg = 1 tab(s), Oral, Daily, Refills(s) 0, Thyroid, Home Medications (4) Active diclofenac sodium 75 mg Oral EC Tab 75 mg = 1 tab(s), Oral, BID levothyroxine 25 mcg (0.025 mg) Tab 25 mcg = 1 tab(s), Oral, Daily Pantoprazole [address] Tab 40 mg = 1 tab(s), Oral, Daily Zetia 10 mg Tab 10 mg = 1 tab(s), Oral, Daily , Medications (2) Active Scheduled: (0) Continuous: (2) Lactated Ringers 1,000 mL 1,000 mL, IV, 100 mL/hr Sodium Chloride 0.9% 1,000 mL 1,000 mL, IV, 20 mL/hr PRN: (0) Problem list: All Problems Anxiety / SNOMED CT 73730549 / Confirmed BMI 23.0-23.9, adult / SNOMED CT 9675663254 / Confirmed Chronic fatigue / SNOMED CT 786793893 / Confirmed Hiatal hernia with gastroesophageal reflux / SNOMED CT 3848090315 / Confirmed Hyperlipidemia / SNOMED CT 65179408 / Confirmed Hypothyroidism / SNOMED CT 43078087 / Confirmed Iron deficiency anemia / SNOMED CT 170830970 / Confirmed Osteopenia / SNOMED CT 292556452 / Confirmed Positive fecal occult blood test / SNOMED CT 61691526 / Confirmed Resolved: Abnormal Pap smear of vagina / SNOMED CT 9038274564 Resolved: Acute maxillary sinusitis / SNOMED CT 623076624 Resolved: Allergic rhinitis / SNOMED CT 008461563 Resolved: Asymptomatic postmenopausal state / SNOMED CT 372170410 Resolved: Breast mass / SNOMED CT 744448449 right breast Resolved: Chronic GERD / SNOMED CT 770536296 Resolved: Diverticulosis / SNOMED CT 738265828 Resolved: Dysphagia / SNOMED CT 52377953 Resolved: Estrogen deficiency / SNOMED CT 219736957 Resolved: Exposure to hepatitis C / SNOMED CT 2408013320 Resolved: Fatigue / SNOMED CT 817931956 Resolved: Female cystocele / SNOMED CT 346493128 Resolved: Hernia, hiatal / SNOMED CT 130152437 Resolved: Poison saúl / SNOMED CT 5523544280 Resolved: Tremor / SNOMED CT 22491864 Histories Past Medical History: Resolved Breast mass (277093399): Resolved on 03/24/2012 at 62 years. Comments: 03/28/2012 EDT 7:55 EDT - [employer]CH[employer]IC[employer], Penelope right breast Tremor (24761643): Resolved on 02/03/2019 at 68 years. Dysphagia (79971240): Resolved on 02/03/2019 at 68 years. Chronic GERD (481797659): Resolved on 02/03/2019 at 68 years. Poison saúl (3153610696): Resolved on 02/03/2019 at 68 years. Allergic rhinitis (541653965): Resolved on 02/03/2019 at 68 years. Diverticulosis (578702253): Resolved on 02/03/2019 at 68 years. Exposure to hepatitis C (6757843372): Resolved on 02/03/2019 at 68 years. Fatigue (545994278): Resolved on 02/03/2019 at 68 years. Asymptomatic postmenopausal state (219315446): Resolved on 02/03/2019 at 68 years. Estrogen deficiency (077803381): Resolved on 02/03/2019 at 68 years. Female cystocele (395631298): Resolved on 02/03/2019 at 68 years. Abnormal Pap smear of vagina (4471310348): Resolved on 02/03/2019 at 68 years. Acute maxillary sinusitis (240961383): Resolved on 04/03/2019 at 69 years. Hernia, hiatal (561238502): Resolved. Procedure history: EGD - Esophagogastroduodenoscopy (8373745997) on 12/05/2018 at 68 Years. Colonoscopy (838209515) on 05/07/2016 at 66 Years. Total hysterectomy via vaginal approach (0993780806) in 1994 at 45 Years. Tonsillectomy (835604416). Comments: 03/24/2012 16:49 DAMIÁN Lopez RN, Julia lyon 1955 laporoscopy. Comments: 03/24/2012 16:49 DAMIÁN Lopez RN, (more content not included)... [facility] Comment on above: Result Comment: Elec tronically Signed By: Jose Eduardo Rasmussen Jr., DO\.timi\Date and Time Signed: 03/19/23 09:10 EDT Pre-Certification Formon Pre-Certification Form [id number]#[id number]:127 [facility] Ambulatory Visit Summaryon 0 02-26-2023 Ambulatory Visit Summary SUNILJOSSUELENA Farmer :1950 Visit Date:02/26/2023 Ambulatory Visit Instructions Your Diagnosis Positive fecal occult blood test Hiatal hernia with gastroesophageal reflux, Gastro-esophageal reflux disease without esophagitis Iron deficiency anemia Your Care Team Attending Physician - JACQUELINE ANTHONY, Ramy Cassidy Primary Care Physician - Fidelina ANTHONY, Erica Referring Physician - Erica Kitchen MD This Is Your Medications List Contact prescribing physician if questions or concerns diclofenac (diclofenac sodium 75 mg Oral EC Tab) ezetimibe (Zetia 10 mg Tab) levothyroxine (levothyroxine 25 mcg (0.025 mg) Tab) pantoprazole (Pantoprazole [address] Tab) Procedures Performed EGD - Esophagogastroduodenoscopy (12/05/2018), Colonoscopy (05/07/2016), Total hysterectomy via vaginal approach (1994), Biopsy of breast, Colonoscopy, Colonoscopy, laporoscopy, Tonsillectomy. Discharge Vitals Heart Rate (Peripheral) 112 Respiratory Rate 16 Blood Pressure 154/54 Height 160 cm Height 63 in Weight 60.7 kg Weight 133.54 lb BMI 23.71 What to do next Scheduled Follow-Up Appointments Wednesday 11:00 AM EDT Where: [facility] Medications What How Much When Instructions Unchanged diclofenac (diclofenac sodium 75 mg Oral EC Tab) 1 Tablets By Mouth 2 times a day Contact prescribing physician if questions or concerns Unchanged ezetimibe (Zetia 10 mg Tab) 1 Tablets By Mouth Every day Contact prescribing physician if questions or concerns Unchanged levothyroxine (levothyroxine 25 mcg (0.025 mg) Tab) 1 Tablets By Mouth Every day Contact prescribing physician if questions or concerns Unchanged pantoprazole (Pantoprazole [address] Tab) 1 Tablets By Mouth Every day Contact prescribing physician if questions or concerns Allergies Erythromycin ES (Rash) penicillins (Rash) Problems Ongoing - Any problem that you are currently receiving treatment for. Anxiety BMI 23.0-23.9, adult Chronic fatigue Hiatal hernia with gastroesophageal reflux Hyperlipidemia Hypothyroidism Iron deficiency anemia Osteopenia Positive fecal occult blood test Historical - Any problem that you are no longer receiving treatment for. Abnormal Pap smear of vagina Acute maxillary sinusitis Allergic rhinitis Asymptomatic postmenopausal state Breast mass Chronic GERD Diverticulosis Dysphagia Estrogen deficiency Exposure to hepatitis C Fatigue Female cystocele Hernia, hiatal Poison saúl Tremor [facility] Consent for Procedure/Surger yon 02-26-2023 Consent for Procedure/Surgery [id number]:127 [facility] Pre-Certification Formon Pre-Certification Form [id number]#[id number]:127 [facility] Physician Referralon 023 Physician Referral [id number]#[id number]:127 [facility] Coding Summary.on 07-17-2022 Coding Summary. CD:[id number] Gh0bWw +PGhlYWQ+ZM6RVOIsU04jfXUrf O4QM9aAGE2HDLPGAHFECY4UDL0 tlAG1MLtvA7YuocWz XxyqoZMvJQ56JHi3WEZ6fXrzZZ eydC0gmRApR5l6PdDoII57wB34 VZmsLEQvMvT1ApHnwcwjxNAy K0ryRkKaySSqHtd+PHRhYmxlIH gsRCBsVMtvRGJhNgSnrMhbXU0s Vk2yYYNaEDYbpNihlKDfUkFt k8htHQMvTChyMU6cyIdwZ5KzuC U1IVYab9v4My99bOY+PHRkIHN0 cVfkZEwuu308AyXhv7wiLRQ0 sVXuWQtbVDQ5J14zz4A4RWZyGF IuKPR8xAK6aY0zfLxmqqrjU0Ov sBLqRdN1XHP2tOFbhN5ngLfp kwkroG8nOtc+Y61TPJ4UCUVCPV 1CZgu5N0ShFvidcMD+CK86VMBf OD92xWEjlOQhi6gkqDf8MgUn PKQqKIB6nVymVNrbl4XiHENjX4 2ksMEru6N4NJSwmTxvbXEbBzPu hBN4yH4tSWsbzjthm7tmdsng Slfrk3utrh33wB90M90sQOvaWN XzVEI4ADSjOGDzvOsvkd0lnE5x Ii8+VRdvf8wnf9wgjYn7XwSo FJRvkaLweGgmQPH9j9HhWx19Z9 XdlOtrk1XiHim6ok79gNEtu3P8 tIX8MWkyKMUlrA8iDPkmOiK1 VDPzBkMwfI55yEGqXBriYg9tkA rzwUsuJI6oQITafwehBGYydJ1l TAKiwJNddIxtAS7oBJKyagfg u458NxBvKLK4NITnpRFvN2CizU 0wNnPcIIWcCRWgX5OkoKKyCDtg Y528GDnnBxK1XADzyzEmD4Ho DHJrdAaqLjZ8i6O6Zi6Ez3Lifo sbJUN2BYbcQROcZeG8RjWbSoP5 W1ZwAkq3AXZwhQfgTO5eH4Rg JJWviofiogvxmFI2EKZhLTRqpT 22sGCnYZwhPx4cy8E4c399BMXi VGIijM65Ag7xuKcaPJRixUGE sQ1fswwln9dvgezuUzSkBHDuBY e8SKl9MFDunXzjTaCcRCJ4XnL6 JTA9eXJkxV3xmGhhpphqzU3k Oyc+V30pqC7aLGM0PNT1zjtwQI AhljYvPI16MA11K0PhZsgggXAv bGU+FIBmozKiqOszDT0eZeVd p3lyf1IoVAedU7TaAXTeLVgpZq g6NXGkCKW9kAB3mI1aUPPmWZbq s1U9fTZ0Q9GfsbAacj4dm0io ZVScDBdqI19ikUAfr0G7XXQkjK Y8FAPixRbnMoXceV71Qof+PGNv uEzsv1HiNefhs0ocy9qwaOn8 TkCwOQTdnuEjeSpdGAD9g8FyFe 80E73wMRbvERRhPKVlUBPuHMIh jHqkrd8wvM7iRe6+PGNvbCB3 kWB1aH3uMKZgHgK9UPqaQ219Zi LzmJHfTpmzx4yoy8lmcEi9DjAz IXZcqxBevLnxYGW3q9GgWn84 L45qUItiWIRyBWTjSZSdVFQdkR byvh7etO3yBh8+PL7ku5fvtz15 iQ07aZZ+ZVVwOZT8gVdwABgp KGUxwN0uXKsfSnC1ZPAbBaKjaE 55mHYdQTcuYu5acNcvxHymQG0o WXTuzezwf603PpOhu0obXFJy oIPlAWmeHZT9K42bp8N7XQUnWT OlWSV0tYC2xN7dzNgwthwnnFIc oEasmpPwrRcoTPonJDeqN877 IHRvcDsnPlBhdGllbnQgTmFtZT t8R2SuHjc2ANZpmXjuIM4auYAg LPeoYr4liWuhjAvnVX4eZZOl zoyhf404SfAbb8uvMQXpzULeTG lmONQ1G44bo9P0MXEsPDTwTEL0 xXP3vK2xcGrsyfntaBUhqQrj ofEdkExpRVmtYZxpV546DMTmsX qtWsLnvdAwYCNqpNP4JH00AJ39 lRCox1Y5wQW3F7IcIZWhqlgm ffcxiGY8UWGwRWDskO07Wq7skE caNm7qPSLuTDX8PHNykBMfM2Qa tI6wYeJkFNIjRUWwX6ZtyABk SDyoI218CEfvVnY9KANenyUmS7 XqWXHctXxvYxR0o3R6Si0RL6Y6 BV10PP08aWAjv3U9sIF0B5Au SJBhfncdyutldFC9SQXcYUYyhT 30Gz5fdKieRk9rGFKuOQT3FOVj yGQhD5TjyP5zKgVlUYApBDSf P4NqeHWyYDpwE062BWpgTbY6BN BhzwDvL3GeLHRadXitUaO5r3S7 Tk7QIMb0QD57NO30dDRgk2H4 kJH6L2LePDGxqdhvyorwaYY0GS TaRFEknG31Tg3gpJmaPp7eIPGe FNS6LXKlzRTrL7LzqV7xUlJy IKAnWPTuL2BegJUmMNwiS494TN fmTfW8PBGmluBaT1BcYKLsaYcd ImP7e4M6Ck8JSJCnJV85JOL3 iRQ4PF94PB77Q5BoFujtdWWtmD U+PHRhYmxlIHdpZHRoPScxMDAl UaOuoPgsHD6kWm9zEJIjJNUp oYftnFKfThOgf3acDLJdCXfgMW 4xeOugQ0LorZM3EOSnj6g1Ng16 N32rE8NpyJS+WOPgzKN3bFK4 bD0gJwMmRnF2TFqpE173LbVfpU SxEbvzk1xgh3qkgFl3PbW8JVJg itYgpKchGNW4l6NbJw01A35p IHdpZHRoPSIxNSUiIHZhbGlnbj 1ivJ4xQj2+UXGyxRK5vFM4iX0w WsExZeJ6WCqwD646IlHmkFXi Rhwzx5lus9dipDs3FhQhZCRumv VgzKplDDW5v7BvRc72A5RouMpk d7AjJxm2ii76zMDxr8O3qSV1 D0YzICAgttxhkQBtvZlkKC7rJW LesyyzGNXmsQ4nGCYzF0w4YyQh GyZ2ICbvO7KkueS1MOMvkQLh CVudQQV5F89ms2I4VZIeTLXuMQ X6lKA7xB9goAphcqlgrKZzaKzo woWalVxyDAodXFlzJ667KBHd zNozRVYjkP1zZZFglQJbeYraLH 1kPTRhqcclEeIEDd2zQReHXsKE HYyTZJc4C0GfKxq1ALNlkRdp PL6xhWBgEZunEy1elHobdSyeOB 6wNIYgnambPOMnyR5mQKHkwLYa pPkvIS2fUOJixjliu867XePy MSK8USCekDLqF9WdqX1fInZrEA LmXPYqD2BuyNTqBUntG704OEmx TrJ3HZWnczEvI1EbJGQzfJwl XcB3i6V7Eu5dRG7xOC4cWMF1OQ 33GM74iAOxu9C7wUM6C0MzJSKy uqvzujnmiWG4USLxMFPdyI32 fNTyKMumWb3ws9Z1l376SIPtBR IfrK90Hs7rtAvfKFEwxONIrJ3t jxoqv9vmofomEnOsBKXtJXj9 CRk8HGBajUkxVoRzHPG7FwU5OH J1mDRkmL4fdFfzmbvfpT5sFer+ CfTyKGIwzqY2P2CqZfl8GYQo zVktZU5xzZUbOAnaTv9drQuwtQ erWZ0fGURlrqrhAVErkM4tYHNo xCQcsMffOD2kNWAynaikh679 SdKjWTJ3OCNzlWUqQ9TqfR0pQz EwXSKoZFJtU4FdcIKxWYtdF941 CVbuEwL0LPWohhFpH9TiOQKi lQztInP9c7E1Nd6TSA8mwOC0C6 PsGpi7UKKksIbuNM8jkIImBZig Bk6dqVygtFdkUV0gWQYtbvdx GMFegU1mHCKmhBNihFoaUF8cJC Lbkscwh705JvAwDNU9HEUyjGLn G1UrlW4mMmTjOZMkCDSpH3Kx tIRiDNygX932QHrxBuX1WKLpfk MkT7GaNZPbvMpaKiS1g8R0Rr8L bZZkKKPdCA97OF15IX08J9Pe PjwvdGFibGU+PHRhYmxlIHdpZH GyUSueLNTeXsGfkYxmLJ4lYh6g BQNeULWolXqbzCFbSwBtf4yk KKTxQUmxQK4ywCkgI9DqhBX4JR Tqj8x0Hz17F01qF4VofZP+PGNv gNJ6bDC2oO7zPgPvXrQ6QNte G065CzPvhNWjUdwcu2soi3tyjS s0IbFwDZFvhfNgjMlfXXF3g2Fs Bt92P42fYHatFGRiFPEaAWFa WJAtzOypdf8khJ7cHo2+PGNvbC H7gOU0rX8xLzYmElQ3RJwaL957 GqMxhEUoTtlhK90dX4SklDQ+ GYSwKpp6VJSysMkzDX4inQRpMH prWz6rNRE4GxUhLyXkYFreR8Np UEJbfddvaaqutRW0LJEkRRVh yC29Pj2dvWvbTb1iMJZbNVN0TQ PamCYgG1KqnO4yKhGiBPOrBVRt R5ErzNYzCHdmM926EJhqPkB5 LXNqqrNaO7QlRHDlxQqrTyH2e1 J3Rs7OoCgiaYRlUP0dCxJwWIf0 J3YoNpt6BPUipItoDQ1bcGFf QDyaDc9yqItheZsdUF5fYORdby sfs580YvZbc3yaAVGrcVQcZFqa XIE3G67sc9M3EYCuKXIdSUV5 fBL6vM8foYwoiwutqBTajJouop InoAneBQzuMBwmQ061QEVbwXau MjOIXjm3C2SdYvf3LCVwsEmj OY2wxJLmYRwfKz2wvArnyCgxJZ 6pAMUvskocf243KsQkw2kzSTPi iNWgMLhjPFP6Q86ze1Z5RCHc VXUwWMH8fBD2pD5wjWqokzzvvB BlzWqzecKldMujQBnyYGjuZ746 IOGjeRllBx2VLpq3O3WuFld3 NTLrdEpoEU6kqOAkSInqKw4xdN dzzKexZR5qJACkbnwap447MrMu o3keGPHrlKIbFEhhDFV6C00r e7V4MYKwKTVqIRB5oWT9sL2ncM lnbjogbGVmdDsgdmVydGljYWwt AWzhC583NKSuiIivUyAofUUo OjwvdGQ+BK38no01E0NmSeymGk x9IVMgONF2yQH4rE2yMIDkZXzd n6T2cAW7D1ZphpLkbx2om3xt YXBz (more content not included)... Normal [place] MRI LSPINE WO CONon 03-23-20 [place] EXAM: MRI of the lum bar spine without contrast 2022. COMPARISON: Lumbar spine x-rays from 03/12/2022. HISTORY: Lumbar spine pain and right hip pain with acute pain. TECHNIQUE: Multiplanar and multisequence imaging of the lumbar spine was performed without contrast. FINDINGS: There is scoliotic curvature of the lumbar spine convex to the left measuring approximately 21 degrees also seen on the comparison x-rays with a rotatory component to the scoliotic curvature. There is anterolisthesis of L5 on S1 measuring 4 mm. There is moderate to marked disc height loss on the left at L5-S1 and L4-L5 as well as moderate disc height loss on the right at L2-L3. No acute fracture is identified. No acute abnormality is identified involving visualized intrapelvic or intra-abdominal structures. The visualized aorta is normal in diameter. No discrete renal lesion is evident. The upper sacrum appears intact. The conus terminates normally at the L1 level. L5-S1: Anterolisthesis of L5 on S1 measures 4 mm with moderately severe facet arthropathy. There is a small left foraminal disc protrusion with moderate left foraminal narrowing. There is no central stenosis. L4-L5: There are bilateral subarticular/foraminal disc protrusions measuring 5 mm on the left and 3 mm on the right with a small annular tear on the right. Moderate to severe left and moderate right-sided facet arthropathy is evident. The thecal sac measures 10 mm in AP dimension. There is moderate to severe left and mild right foraminal narrowing. L3-L4: There is a broad-based disc protrusion and moderate facet arthropathy with mild endplate spurring. There is mild to moderate right and mild left foraminal narrowing without central stenosis. L2-L3: There are bilateral subarticular/foraminal disc protrusions with moderate facet arthropathy. Mild to moderate right and mild left foraminal narrowing is evident without central stenosis. L1-L2: There is a mild disc bulge and mild to moderate facet arthropathy without central or foraminal stenosis. IMPRESSION: 1. Scoliotic curvature of the lumbar spine is convex to the left measuring approximately 21 degrees. 2. There is grade 1 anterolisthesis of L5 on S1 with moderately severe facet arthropathy and a left foraminal disc protrusion resulting in moderate left foraminal narrowing at L5-S1. 3. There is also a subarticular/foraminal disc protrusions bilaterally at L4-L5 resulting in moderate to severe left and mild right foraminal narrowing at L4-L5. Electronically authenticated by: LEO FAJARDO Date: 2022 15:15 Normal [facility] XR LSPINE MIN 4 VIEWSon 02-21 XR LSPINE MIN 4 VIEWS EXAMINATION: XR LS PINE MIN 4 VIEWS HISTORY: Hip pain COMPARISON: No relevant comparison available. FINDINGS: BONES: 6 mm anterolisthesis of L5 in relation to S1. 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 Moderate to severe diffuse degenerative spondylosis and facet osteoarthropathy. Bilateral sacroiliac joint sclerosis DISC SPACES: Multilevel asymmetric right-sided moderate to severe disc space narrowing with endplate sclerosis, PARASPINOUS: Negative. No paraspinous abnormality is seen. 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 When there are no FDA-approved or cleared tests available, and other criteria are met, FDA can make tests available under an emergency access mechanism called an Emergency Use Authorization (EUA). The EUA for this test is supported by the [place] of Health and Human Service's (HHS's) declaration that circumstances exist to justify the emergency use of in vitro diagnostics for the detection and/or diagnosis of the virus that causes COVID-19. This EUA will remain in effect (meaning this test can be used) for the duration of the COVID-19 declaration justifying emergency of IVDs, unless it is terminated or revoked by FDA (after which the test may no longer be used). When diagnostic testing is negative, the possibility of a false negative should be considered in the context of a patient's recent exposures and the presence of clinical signs and symptoms consistent with SARS-CoV-2. Performed By: #### C VDTBH #### [facility] [address] [place] [address] Dr. Francesca Cook INFLUENZA A AND B [facility] 12-19 [facility] SEE BELOW Normal [facility] Comment on above: Result Comment: Nega tive for Flu A protein angiten. Infection due to Flu A cannot be ruled out. Flu A angiten in the sample may be below the detection limit of the test. Performed By: #### C VDTBH #### [facility] [address] [place] [address] Dr. Francesca Cook [facility] SEE BELOW Normal [facility] Comment on above: Result Comment: Nega tive for Flu B protein antigen. Infection due to Flu B cannot be ruled out. Flu B antigen in the sample may be below the detection limit of the test. Performed By: #### C VDTBH #### [facility] [address] [place] [address] Dr. Francesca Cook INFLUENZA A AG Negative Normal NEGATIVE SEE COMMENT [facility] Comment on above: Performed By: #### C VDTBH #### [facility] [address] [place] [address] Dr. Francesca Cook INFLUENZA B AG Negative Normal NEGATIVE SEE COMMENT [facility] Comment on above: Performed By: #### C VDTBH #### [facility] [address] [place] [address] Dr. Francesca Cook INTERNAL CONTROLS Within Normal Limits Normal Wi thin Normal Limits [facility] Comment on above: Performed By: #### C VDTBH #### [facility] [address] [place] [address] Dr. Francesca Cook CBC AUTO DIFFon 08-13-2021 BASO # 0.0 103/ul Normal 0.0-0.1 [facility] Comment on above: Performed By: #### C BC #### [facility] [address] [place] [address] Dr. Francesca Cook Basophils/100 WBC (Bld) 0.4 % Normal 0.2-2.0 [facility] Comment on above: Performed By: #### C BC #### [facility] [address] [place] [address] Dr. Francesca Cook EO # 0.1 103/ul Normal 0.0-0.7 [facility] Comment on above: Performed By: #### C BC #### [facility] [address] [place] [address] Dr. Francesca Cook Eosinophils/100 WBC (Bld) 2.0 % Normal 0.9-7.0 [facility] Comment on above: Performed By: #### C BC #### [facility] [address] [place] [address] Dr. Francesca Cook Erythrocyte distribution width (RBC) [Ratio] 13.8 % Normal 11.0-15.0 [facility] Comment on above: Performed By: #### C BC #### [facility] [address] [place] [address] Dr. Francesca Cook Hematocrit (Bld) [Volume fraction] 39.8 % Normal 36.0-48.0 [facility] Comment on above: Performed By: #### C BC #### [facility] [address] [place] [address] Dr. Francesca Cook Hemoglobin (Bld) [Mass/Vol] 12.7 g/dL Normal 12.0-16.0 [facility] Comment on above: Performed By: #### C BC #### [facility] [address] [place] [address] Dr. Francesca Cook IG # 0.02 10e3/ul Normal 0.00-0.03 [facility] Comment on above: Performed By: #### C BC #### [facility] [address] [place] [address] Dr. Francesca Cook IG % 0.4 % Normal 0.0-0.5 [facility] Comment on above: Performed By: #### C BC #### [facility] [address] [place] [address] Dr. Francesca Cook LYMPH # 1.2 103/ul Normal 1.2-3.8 [facility] Comment on above: Performed By: #### C BC #### [facility] [address] [place] [address] Dr. Francesca Cook Lymphocytes/100 WBC (Bld) 21.7 % Normal 20.5-60.0 [facility] Comment on above: Performed By: #### C BC #### [facility] [address] [place] [address] Dr. Francesca Cook MANUAL DIFF REQ NO Normal [facility] Comment on above: Performed By: #### C BC #### [facility] [address] [place] [address] Dr. Francesca Cook MCH (RBC) [Entitic mass] 30.4 pg Normal 26.7-34.0 [facility] Comment on above: Performed By: #### C BC #### [facility] [address] [place] [address] Dr. Francesca Cook MCHC (RBC) [Mass/Vol] 31.9 g/dL Normal 29.9-35.2 [facility] Comment on above: Performed By: #### C BC #### [facility] [address] [place] [address] Dr. Francesca Cook MCV (RBC) [Entitic vol] 95.2 fL Normal 81.0-99.0 [facility] Comment on above: Performed By: #### C BC #### [facility] [address] [place] [address] Dr. Francesca Cook MONO # 0.6 103/ul Normal 0.3-0.8 [facility] Comment on above: Performed By: #### C BC #### [facility] [address] [place] [address] Dr. Francesca Cook Monocytes/100 WBC (Bld) 10.6 % Normal 1.7-12.0 [facility] Comment on above: Performed By: #### C BC #### [facility] [address] [place] [address] Dr. Francesca Cook NEUT # 3.5 103/ul Normal 1.4-6.5 [facility] Comment on above: Performed By: #### C BC #### [facility] [address] [place] [address] Dr. Francesca Cook Neutrophils/100 WBC (Bld) 64.9 % Normal 43.0-75.0 [facility] Comment on above: Performed By: #### C BC #### [facility] [address] [place] [address] Dr. Francesca Cook Platelet mean volume (Bld) [Entitic vol] 9.6 fL Normal 9.5-13.5 [facility] Comment on above: Performed By: #### C BC #### [facility] [address] [place] [address] Dr. Francesca Cook PLT 325 103/ul Normal 150-450 [facility] Comment on above: Performed By: #### C BC #### [facility] [address] [place] [address] Dr. Francesca Cook RBC 4.18 106/ul Critically low 4.20-5.40 [facility] Comment on above: Performed By: #### C BC #### [facility] [address] [place] [address] Dr. Francesca Cook WBC 5.4 103/ul Normal 4.0-11.0 [facility] Comment on above: Performed By: #### C BC #### [facility] [address] [place] [address] Dr. Francesca Cook FREE THYROXINE INDEX T7on FTI 2.70 Normal [facility] Comment on above: Performed By: #### C MP, T7, TSH, LIPID #### [facility] [address] [place] [address] Dr. Francesca Cook T3U 31.0 % Normal 23.5-40.5 [facility] Comment on above: Performed By: #### C MP, T7, TSH, LIPID #### [facility] [address] [place] [address] Dr. Francesca Cook T4 [Mass/Vol] 8.70 ug/dL Normal 5.53-11.00 [facility] Comment on above: Performed By: #### C MP, T7, TSH, LIPID #### [facility] [address] [place] [address] Dr. Francesca Cook GLYCOHEMOGLOBIN A1Con 2020 ADA RECOMMENDATION ADA THERAPEUTIC TARG ET 6.0 - 7.0 ACTION SUGGESTED > 7.0 Normal [facility] Comment on above: Performed By: #### A 1C #### [facility] [address] [place] [address] Dr. Francesca Cook Glucose [Mass/Vol] 126 mg/dL Normal [facility] Comment on above: Performed By: #### A 1C #### [facility] [address] [place] [address] Dr. Francesca Cook HbA1c (Bld) [Mass fraction] 6.0 % Normal <=6.0 [facility] Comment on above: Performed By: #### A 1C #### [facility] [address] [place] [address] Dr. Francesca Cook IRONon 08-13-2021 Iron [Mass/Vol] 102.0 ug/dL Normal 37.0-170.0 [facility] Comment on above: Performed By: #### C VDTBH #### [facility] [address] [place] [address] Dr. Francesca Cook LIPID PROFILEon 08-13-2021 CHOL-HDL RATIO NORM SEE BELOW Normal [facility] Comment on above: Result Comment: 3.3 - 4.4 LOW RISK 4.4 - 7.1 AVERAGE RISK 7.1 - 11.0 MODERATE RISK >11.0 HIGH RISK Performed By: #### C MP, T7, TSH, LIPID #### [facility] [address] [place] [address] Dr. Francesca Cook Cholesterol [Mass/Vol] 247 mg/dL Critically high <=200 [facility] Comment on above: Performed By: #### C MP, T7, TSH, LIPID #### [facility] [address] [address] [address] Francesca Cook Cholesterol in HDL [Mass/Vol] 108 mg/dL Normal [facility] Comment on above: Performed By: #### C MP, T7, TSH, LIPID #### [facility] [address] [address] [address] Francesca Cook Cholesterol in LDL [Mass/Vol] 126.4 mg/dL Normal [facility] Comment on above: Performed By: #### C MP, T7, TSH, LIPID #### [facility] [address] [address] [address] Francesca Cook Cholesterol.total/Cholest jerzy in HDL [Mass ratio] 2.3 {ratio} Normal [facility] Comment on above: Performed By: #### C MP, T7, TSH, LIPID #### [facility] [address] [address] [address] Francesca Cook HDL NORMAL > or = 60 mg/dl - LO W CARDIOVASCULAR RISK <40 mg/dl - HIGH CARDIOVASCULAR RISK Normal [facility] Comment on above: Performed By: #### C MP, T7, TSH, LIPID #### [facility] [address] [address] [address] Francesca Cook LDL CALC NORMAL SEE BELOW Normal [facility] Comment on above: Result Comment: <100 mg/dl OPTIMAL 100 - 129 mg/dl NEAR OR ABOVE OPTIMAL 130 - 159 mg/dl BORDERLINE HIGH 160 - 189 mg/dl HIGH >190 mg/dl VERY HIGH Performed By: #### C MP, T7, TSH, LIPID #### [facility] [address] [address] [address] Francesca Cook Triglyceride [Mass/Vol] 63 mg/dL Normal <=150 [facility] Comment on above: Performed By: #### C MP, T7, TSH, LIPID #### [facility] [address] [address] [address] Francesca Cook VLDL CALC 12.6 mg/dL Normal [facility] Comment on above: Performed By: #### C MP, T7, TSH, LIPID #### [facility] [address] [place] [address] Dr. Francesca Cook OCC BLD IMMUNO SCREENon 07-24 OCCULT BLOOD Negative Normal NEGATIVE [facility] Comment on above: Performed By: #### O BSCRN #### [facility] [address] [place] [address] Dr. Francesca Cook PROF 14(COMP METB)on 021 Albumin [Mass/Vol] 3.5 g/dL Normal 3.5-5.0 [facility] Comment on above: Performed By: #### C MP, T7, TSH, LIPID #### [facility] [address] [place] [address] Dr. Francesca Cook Albumin/Globulin [Mass ratio] 0.9 {ratio} Normal [facility] Comment on above: Performed By: #### C MP, T7, TSH, LIPID #### [facility] [address] [place] [address] Dr. Francesca Cook ALP [Catalytic activity/Vol] 70 U/L Normal 38-126 [facility] Comment on above: Performed By: #### C MP, T7, TSH, LIPID #### [facility] [address] [place] [address] Dr. Francesca Cook ALT [Catalytic activity/Vol] 23 U/L Normal 9-52 [facility] Comment on above: Performed By: #### C MP, T7, TSH, LIPID #### [facility] [address] [place] [address] Dr. Francesca Cook Anion gap [Moles/Vol] 8.0 mmol/L Normal [facility] Comment on above: Performed By: #### C MP, T7, TSH, LIPID #### [facility] [address] [place] [address] Dr. Francesca Cook AST [Catalytic activity/Vol] 16 U/L Normal 14-36 [facility] Comment on above: Performed By: #### C MP, T7, TSH, LIPID #### [facility] [address] [address] [address] Fracnesca Cook Bilirubin [Mass/Vol] 0.7 mg/dL Normal 0.2-1.3 [facility] Comment on above: Performed By: #### C MP, T7, TSH, LIPID #### [facility] [address] [place] [address] Dr. Francesca Cook Calcium [Mass/Vol] 9.4 mg/dL Normal 8.4-10.2 [facility] Comment on above: Performed By: #### C MP, T7, TSH, LIPID #### [facility] [address] [place] [address] Dr. Francesca Cook Chloride [Moles/Vol] 102 mmol/L Normal 98-107 [facility] Comment on above: Performed By: #### C MP, T7, TSH, LIPID #### [facility] [address] [place] [address] Dr. Francesca Cook CO2 [Moles/Vol] 32.7 mmol/L Critically high 22.0-30.0 [facility] Comment on above: Performed By: #### C MP, T7, TSH, LIPID #### [facility] [address] [place] [address] Dr. Francesca Cook Creatinine [Mass/Vol] 0.84 mg/dL Normal 0.52-1.04 [facility] Comment on above: Performed By: #### C MP, T7, TSH, LIPID #### [facility] [address] [place] [address] Dr. Francesca Cook EGFR-AF MOROCCAN >60 Normal >=60 [facility] Comment on above: Performed By: #### C MP, T7, TSH, LIPID #### [facility] [address] [place] [address] Dr. Francesca Cook EGFR-NON AF MOROCCAN >60 Normal >=60 [facility] Comment on above: Performed By: #### C MP, T7, TSH, LIPID #### [facility] [address] [place] [address] Dr. Francesca Cook Globulin (S) [Mass/Vol] 3.7 g/dL Normal [facility] Comment on above: Performed By: #### C MP, T7, TSH, LIPID #### [facility] [address] [place] [address] Dr. Francesca Cook Glucose [Mass/Vol] 100 mg/dL Normal 74-106 [facility] Comment on above: Performed By: #### C MP, T7, TSH, LIPID #### [facility] [address] [place] [address] Dr. Francesca Cook Potassium [Moles/Vol] 3.7 mmol/L Normal 3.4-5.0 [facility] Comment on above: Performed By: #### C MP, T7, TSH, LIPID #### [facility] [address] [place] [address] Dr. Francesca Cook Protein [Mass/Vol] 7.2 g/dL Normal 6.1-8.2 [facility] Comment on above: Performed By: #### C MP, T7, TSH, LIPID #### [facility] [address] [place] [address] Dr. Francesca Cook Sodium [Moles/Vol] 139 mmol/L Normal 137-145 [facility] Comment on above: Performed By: #### C MP, T7, TSH, LIPID #### [facility] [address] [place] [address] Dr. Francesca Cook Urea nitrogen [Mass/Vol] 19.0 mg/dL Critically high 7.0-17 .0 [facility] Comment on above: Performed By: #### C MP, T7, TSH, LIPID #### [facility] [address] [place] [address] Dr. Francesca Cook Urea nitrogen/Creatinine [Mass ratio] 22.6 mg/mg Normal [facility] Comment on above: Performed By: #### C MP, T7, TSH, LIPID #### [facility] [address] [place] [address] Dr. Francesca Cook TSHon 08-13-2021 TSH 3.946 uIU/mL Normal 0.470-4.68 0 [facility] Comment on above: Performed By: #### C MP, T7, TSH, LIPID #### [facility] [address] [address] [address] Francesca Cook TSH RANGE SEE BELOW Normal [facility] Comment on above: Result Comment: <0.3 4 UIU/ml HYPERTHYROID 0.34-5.60 UIU/ml EUTHYROID >5.60 UIU/ml HYPOTHYROID Performed By: #### C MP, T7, TSH, LIPID #### [facility] [address] [address] [address] CHEST W CONon 07-28-2021 CT CHEST W CON EXAMINATION: CT CHES T W CON HISTORY: Spiculated lesion , cough COMPARISON: XR chest 07/18/2021 TECHNIQUE: Multi-planar CT images were created with IV contrast. Axial, Coronal, and Sagittal images. Dose reduction techniques were achieved by using automated exposure control and/or adjustment of mA and/or kV according to patient size and/or use of iterative reconstruction technique. 3-D reconstruction was performed on a separate workstation. FINDINGS: VASCULATURE: No pulmonary embolism or abnormal opacity. LUNGS: Left pericardial fat pad and trace amount of atelectasis or infiltrate within lingula. Small herniation of fat through the posterior left diaphragm obscuring the posterior left costophrenic angle. PLEURA: No mass, effusion, or pneumothorax. ANGELA: No mass or adenopathy. MEDIASTINUM: No mass or adenopathy. CARDIAC: No enlargement, pericardial effusion, or pericardial thickening. AORTA: No aneurysm or dissection. CHEST WALL: No mass or axillary adenopathy. BONES: Scoliotic curvature of the spine. No bone lesion or fracture. LIMITED ABDOMEN: Large hiatal hernia. Limited images of the upper abdomen. OTHER: Negative. IMPRESSION: 1. No mass or suspicious infiltrates within the lungs. 2. Large hiatal hernia. 3. Rotoscoliosis. Electronically authenticated by: SHAYNA GRACIA Date: 2021-07-28 07:12 Normal [facility] CREATININEon 07-26-2021 Creatinine [Mass/Vol] 0.72 mg/dL Normal 0.52-1.04 [facility] Comment on above: Performed By: #### C MALLY #### [facility] [address] [address] [address] Francesca Cook EGFR-AF MOROCCAN >60 Normal >=60 [facility] Comment on above: Performed By: #### C MALLY #### [facility] [address] [place] [address] Dr. Francesca Cook EGFR-NON AF MOROCCAN >60 Normal >=60 [facility] Comment on above: Performed By: #### C MLALY #### [facility] [address] [address] [address] Francesca Cook CULTURE SPUTUMon 07-19-2021 CULTURE SPUTUM Culture Observations : NORMAL RESPIRATORY KEITH. Normal [facility] Comment on above: Performed By: #### C VDTBH #### [facility] [address] [place] [address] Dr. Francesca Cook SPUTUM GRAM STAINon 07-19-20 COMMENTS Normal [facility] Comment on above: Performed By: #### C VDTBH #### [facility] [address] [place] [address] Dr. Francesca Cook DIPHTHEROIDS [facility] Comment on above: Performed By: #### C VDTBH #### [facility] [address] [place] [address] Dr. Francesca Cook EPITHELIALS <25 [facility] Comment on above: Performed By: #### C VDTBH #### [facility] [address] [place] [address] Dr. Francesca Cook FUNGAL ELEMENTS Normal [facility] Comment on above: Performed By: #### C VDTBH #### [facility] [address] [address] [address] Francesca Cook GRAM NEG BACILLI [place] [facility] Comment on above: Performed By: #### C VDTBH #### [facility] [address] [address] [address] Francesca SHORT NEG DIPPLOCOCCI Normal [facility] Comment on above: Performed By: #### C VDTBH #### [facility] [address] [place] [address] Dr. Francesca Cook GRAM POS BACILLI FEW Normal [facility] Comment on above: Performed By: #### C VDTBH #### [facility] [address] [address] [address] Francesca Cook GRAM POSITIVE COCCI MODERATE Normal [facility] Comment on above: Performed By: #### C VDTBH #### [facility] [address] [address] [address] Francesca Cook WBC (Bld) [#/Vol] 10*3/uL Normal [facility] Comment on above: Performed By: #### C VDTBH #### [facility] [address] [address] [address] Francesca Cook XR CHEST 2 Von 07-18-2021 XR CHEST 2 V EXAMINATION: XR CHES T 2 V HISTORY: Acute bronchitis , cough COMPARISON: No relevant comparison available. FINDINGS: LUNGS: Mild patchy opacity within the lingula and within one of the posterior costophrenic angles. Hyperexpanded lungs suggestive of COPD. VASCULATURE: No increased pulmonary vasculature. PLEURA: No pneumothorax, effusion, or pleural thickening. CARDIAC: No cardiomegaly or cardiac silhouette abnormality. MEDIASTINUM: No visible mass or adenopathy. BONES: No fracture or visible bone lesion. OTHER: Negative. IMPRESSION: 1. Hyperexpanded lungs compatible with COPD. 2. Slightly spiculated opacity within the lingula; infiltrate versus mass. 3. Increased opacity of one or both of the posterior costophrenic angles on the lateral view suspected to represent infiltrates or atelectasis. 4. Follow-up imaging to document clearing is recommended. If findings persist consider CT imaging of the chest with IV contrast. Electronically authenticated by: SHAYNA GRACIA Date: 2021-07-18 12:21 Normal [facility] Covid-19 PCR (CVDTBH)on 06-23 SARS-CoV-2 (COVID-19) RNA CARLEE+probe Ql (Unsp spec) Not detected Normal NOT DETECTED [facility] Comment on above: Result Comment: This test is not yet approved or cleared by the [place] FDA. When there are no FDA-approved or cleared tests available, and other criteria are met, FDA can make tests available under an emergency access mechanism called an Emergency Use Authorization (EUA). The EUA for this test is supported by the [place] of Health and Human Service's (HHS's) declaration that circumstances exist to justify the emergency use of in vitro diagnostics for the detection and/or diagnosis of the virus that causes COVID-19. This EUA will remain in effect (meaning this test can be used) for the duration of the COVID-19 declaration justifying emergency of IVDs, unless it is terminated or revoked by FDA (after which the test may no longer be used). When diagnostic testing is negative, the possibility of a false negative should be considered in the context of a patient's recent exposures and the presence of clinical signs and symptoms consistent with SARS-CoV-2. Performed By: #### C [facility] #### [facility] [address] [place] [address] Dr. Francesca Cook Vital Signs Date Time Vital Sign Value Performing Clinician Dora lacey 02-26-2023 09:35-0400 Blood Pressure Location Rmay [facility] 02-26-2023 09:35-0400 Diastolic blood pressure 54 mm[Hg] Ramy [facility] 02-26-2023 09:35-0400 Heart rate 112 /min Ramy [facility] 02-26-2023 09:35-0400 Respiratory rate 16 /min Ramy PHILLIPS [facility] 02-26-2023 09:35-0400 Systolic blood pressure 154 mm[Hg] Ramy [facility]ILLIPS [facility] Encounters Encounter Date Encounter Type Care Provider Facility Start: 07-12-2023 End: 07-13-2023 ambulatory SELF REFERRAL Facility:[facility] Start: 07-12-2023 End: 07-12-2023 Patient encounter procedure SELF REFERRAL [facility] Start: 03-19-2023 End: 03-19-2023 ambulatory Ramy PHILLIPS Facility:[facility] Start: 02-26-2023 End: 02-27-2023 ambulatory Ramy Cassidy MACAna Cristina Facility:[facility] Start: 02-26-2023 End: 02-26-2023 Patient encounter procedure Ramy WATTSAna Cristina [facility] [place] Start: 02-15-2023 ambulatory Ramy PHILLIPS Facility :[facility] Start: 2022 End: 03-24-[address] ERICA KITCHEN Facility:[facility] Start: 03-12-2022 End: 03-13-[address] ERICA KITCHEN Facility:[facility] Start: 12-19-2021 End: 12-19-[address] ERICA KITCHEN Facility:[facility] Start: 08-13-2021 End: 08-13-[address] ERICA KITCHEN Facility:[facility] Start: 08-13-2021 End: 08-14-[address] ERICA KITCHEN Facility:[facility] Start: 07-26-2021 End: 07-27-[address] ERICA KITCHEN Facility:[facility] Start: 07-19-2021 End: 07-19-[address] ERICA KITCHEN Facility:[facility] Start: 07-18-2021 End: 07-19-[address] ERICA KITCHEN Facility:[facility] Start: 07-11-2021 End: 07-11-2021 ambulatory LINDA MCCALL Facility:[facility] Procedures Date Procedure Procedure Detail Performing Clinician Start: 03-19-2023 Colonoscopy SELF REFERRAL Start: 03-19-2023 Esophagogastroduodenoscopy SELF REFERRAL Start: 12-05-2018 Esophagogastroduodenoscopy Ramy PHILLIPS Start: 05-07-2016 Colonoscopy Ramy PHILLIPS Start: 08-23-1994 Total hysterectomy via vaginal approach Ramy PHILLIPS Biopsy of breast Ramy NIL L Comment on above: right Colonoscopy Ramy PHILLIPS laporoscopy 2 Ramy WATTSL Comment on above: for endometriosis mid Tonsillectomy Ramy WATTSL Comment on above: fall 1955 Immunizations Immunization Date Immunization Notes Care Provider Fa cility 10-15-2020 SARS-CoV-2 (COVID-19 ) mRNA BNT-162b2 vax Ramy WATTSL [facility] [place] 09-24-2020 SARS-CoV-2 (COVID-19 ) mRNA BNT-162b2 vax Ramy NILL [facility] 04-23-2019 influenza virus vaccine, live, attenuated, for intranasal use Ramy PHILLIPS General Surgery [facility] [place] Payers Date Payer Category Payer Medicare [id number] 1960 Medicare [id number] 1950 Unknown [id number] 2.16.84 [id number] 1950 Unknown [id number] 2.16.84 [id number] 1950 Unknown [id number] 2.16.84 [id number] 1950 Unknown [id number] 2.16.84 [id number] 1950 Unknown [id number] 2.16.84 [id number] 1950 Unknown [id number] 2.16.84 [id number] 1950 Unknown [id number] 2.16.84 0.1.947078.3.579.2.593 1949 Unknown [id number] 2.16.84 0.1.152537.3.579.2.593 1949 Unknown [id number] 2.16.84 0.1.069600.3.579.2.59 1949 Unknown [id number] 2.16.8 40.1.018824.3.579.2.727 1950 Unknown [id number] 2.16.8 [id number] 1950 Unknown [id number] 2.16.8 [id number] 1950 Unknown [id number] 2.16.8 [id number] Social History Date Type Detail Facility Start: 02-26-2023 Tobacco smoking status Never s moked tobacco (finding) [facility] [place] Tobacco smoking status Never [facility] [place] Sex Assigned At Female [facility] Functional Status Date Assessment Result Facility 02-26-2023 Functional Status N/A [facility] [place] History and physical note 03-22-2023 Note Date & Type Note Facility 03-22-2023 Note [id number] 0#[id number] [facility] Clinical Note 03-19-2023 Note Date & Type Note Facility 03-19-2023 Note Endoscopy Care After Procedure Please read the instructions outlined below and refer to this sheet in the next few weeks. These discharge instructions provide you with general information on caring for yourself after you leave the hospital. Your doctor may also give you specific instructions. While your treatment has been planned according to the most current medical practices available, unavoidable complications occasionally occur. If you have any problems or questions after discharge, please call your doctor. ACTIVITY ? You may resume your regular activity but move at a slower pace for the next 24 hours. ? Take frequent rest periods for the next 24 hours. ? Walking will help expel (get rid of) the air and reduce the bloated feeling in your abdomen. ? No driving for 24 hours (because of the anesthesia (medicine) used during the test). ? You may shower. ? Do not sign any important legal documents or operate any machinery for 24 hours (because of the anesthesia used during the test). NUTRITION ? Drink plenty of fluids. ? You may resume your normal diet. ? Begin with a light meal and progress to your normal diet. ? Avoid alcoholic beverages for 24 hours or as instructed by your caregiver. MEDICATIONS ? You may resume your normal medications unless your caregiver tells you otherwise. WHAT YOU CAN EXPECT TODAY ? You may experience abdominal discomfort such as a feeling of fullness or ?gas? pains. FOLLOW-UP ? Your doctor will discuss the results of your test with you. seek immediate medical attention if any of the following occur: ? Excessive nausea (feeling sick to your stomach) and/or vomiting. ? Severe abdominal pain and distention (swelling). ? Trouble swallowing. ? Temperature over 100 F (37.8? C). ? Rectal bleeding or vomiting of blood. Document Released: 2005 Document Re-Released: 01/31/2007 ExitCare? Patient Information ?2009 [employer]. Colonoscopy Care After Surgery Please read the instructions outlined below and refer to this sheet in the next few weeks. These discharge instructions provide you with general information on caring for yourself after you leave the hospital. Your doctor may also give you specific instructions. While your treatment has been planned according to the most current medical practices available, unavoidable complications occasionally occur. If you have any problems or questions after discharge, please call your doctor. ACTIVITY You may resume your regular activity, but move at a slower pace for the next 24 hours. Take frequent rest periods for the next 24 hours. Walking will help get rid of the air and reduce the bloated feeling in your abdomen (belly). No driving for 24 hours (because of the anesthesia (medicine) used during the test). You may shower. Do not sign any important legal documents or operate any machinery for 24 hours (because of the anesthesia used during the test). NUTRITION Drink plenty of fluids. You may resume your normal diet as instructed by your doctor. Begin with a light meal and progress to your normal diet. Heavy or fried foods are harder to digest and may make you feel nauseated (sick to your stomach). Avoid alcoholic beverages for 24 hours or as instructed. MEDICATIONS You may resume your normal medications unless your doctor tells you otherwise. WHAT YOU CAN EXPECT TODAY Some feelings of bloating in the abdomen. Passage of more gas than usual. Spotting of blood in your stool or on the toilet paper. FOLLOW-UP Your doctor will discuss the results of your test with you. SEEK IMMEDIATE MEDICAL ATTENTION IF: There is more than a spotting of blood in your stool. There is abdominal distention (your abdomen is swollen). There is vomiting. You have a temperature over 101.5 F. There is abdominal pain or discomfort that is severe or gets worse throughout the day. Diverticulosis Diverticulosis is a condition that develops when small pouches (diverticula) form in the wall of the large intestine (colon). The colon is where water is absorbed and stool is formed. The pouches form when the inside layer of the colon pushes through weak spots in the outer layers of the colon. You may have a few pouches or many of them. What are the causes? The cause of this condition is not known. What increases the risk? The following factors may make you more likely to develop this condition: ? Being older than age 60. Your risk for this condition increases with age. Diverticulosis is rare among people younger than age 30. By age 80, many people have it. ? Eating a low-fiber diet. ? Having frequent constipation. ? Being overweight. ? Not getting enough exercise. ? Smoking. ? Taking bxea-xpj-yrzvkqh pain medicines, like aspirin and ibuprofen. ? Having a family history of diverticulosis. What are the signs or symptoms? In most people, there are no symptoms of this condition. If you do have symptoms (more content not included)... [facility] History and physical note 03-19-2023 Note Date & Type Note Facility 03-19-2023 Note Patient: JOSSUE BARBER Age: 72 years Sex: Female : 1950 Associated Diagnoses: None Author: Ramy PHILLIPS MD Subjective no changes to [facility] & [facility] Comment on above: Result Comment: Elec tronically Signed By: Ramy PHILLIPS MD\.br\Date and Time Signed: 03/19/23 10:19 EDT Clinical Note 02-26-2023 Note Date & Type Note Facility 02-26-2023 Note Chief Complaint consultation for positive occult stool HPI Staff 72 year old female presents on consultation from Dr. Kitchen for positive occult stool. Recent H/H 11.5/35.6. Last colonoscopy completed 04/2016 with diverticulosis. Denies abdominal or rectal pain. No rectal bleeding, blood with wiping or blood in stool. Denies change in bowel habits, nausea or vomiting. No unexplained weight loss. Denies dizziness, lightheadedness or SOB. No known family history of colon cancer. History of Present Illness 72 yo female with h/o hypothyroidism, hyperlipidemia, hiatal hernia with GERD, referred for positive fecal occult blood and anemia; denies change in bms or gross blood in stools, no abd complaints; last colonoscopy 2015 with sigmoid diverticulosis; last EGD 2018 with 5 cm hiatal hernia; GERD controlled with Pantoprazole; abd operations signifcant for GRACIELA; on Diclofenac, no asa, no SBE prophylaxis; no fmhx of GI malignancy or IBD; no tobacco use. Review of Systems PHQ Score Initial Depression Screen Score: 0 ROS - Provider Constitutional: no fever, no sweats, no weight loss. Eyes: yes glasses, no blurred vision, no visual loss. ENMT: no dentures, no hoarseness, no swallowing difficulties, no hearing loss, no ear infection(s), no nose bleeds. Cardiovascular: normal blood pressure, no chest pain, regular heartbeat, no heart murmur. Respiratory: no shortness of breath, no cough, no asthma, no wheezing. Gastrointestinal: no nausea, no vomiting, no diarrhea, no constipation, no blood in stool, no change in bowel habits, no abdominal pain, no hepatitis. Genitourinary: no kidney stones, no urine infection, no dysuria. Musculoskeletal: no pain, no weakness. Skin: no changing moles, no rash, no skin lumps. Neurologic: no seizures, no epilepsy, no headache. Psychiatric: no emotional or psychiatric problem. Heme/Lymph: no bleeding problems, no anemia, no blood clots, no transfusions. Allergy/Immunologic: no swollen lymph nodes/glands, no IV drug abuse. Other: Additional ROS info: Except as noted in the above Review of Systems and in the History of Present Illness, all other systems have been reviewed and are negative or noncontributory. Physical Exam Vitals & Measurements HR: 112(Peripheral) RR: 16 BP: 154/54 HT: 63 in HT: 160 cm WT: 60.7 kg WT: 133.54 lb BMI: 23.71 HEENT: normal conjunctiva, sclera clear, no scleral icterus, EOM intact, PERRLA, oral mucosa moist without lesions. Neck: trachea midline, no mass, symmetric, no thyromegaly or nodules, no adenopathy Respiratory: lungs CTA, respirations non labored. Cardiovascular: regular rate and rhythm, no murmur, no pedal edema or varicosities. Gastrointestinal: soft, non distended, no tenderness, no masses, no palpable hernias, diastasis recti no, no hepatosplenomegaly; normal bs Lymphatic: no cervical adenopathy, no supraclavicular adenopathy. Musculoskeletal: normal gait, digits and nails without infection, nodes, cyanosis, clubbing. Skin: no rashes, no lesions, no ulcers, no subcutaneous nodules, induration. Psychiatric/Neuro: oriented to time, place, person, judgement normal, affect appropriate for age, insight intact, no focal deficits. Tests: labs reviewed,, review of old records completed, Discussed surgical options, risks, and possible complications with patient. Assessment/Plan 1. Positive fecal occult blood test (R19.5: Other fecal abnormalities) plan EGD and colonoscopy under anesthesia for further evaluation; informed consent obtained. 2. Hiatal hernia with gastroesophageal reflux, (K21.9: Gastro-esophageal reflux disease without esophagitis)Gastro-esophageal reflux disease without esophagitis see # 1 3. Iron deficiency anemia (D50.9: Iron deficiency anemia, unspecified) see # 1 Follow-up No qualifying data available Problem List/Past Medical History Ongoing Anxiety BMI 23.0-23.9, adult Chronic fatigue Hiatal hernia with gastroesophageal reflux Hyperlipidemia Hypothyroidism Iron deficiency anemia Osteopenia Positive fecal occult blood test Historical Abnormal Pap smear of vagina Acute maxillary sinusitis Allergic rhinitis Asymptomatic postmenopausal state Breast mass Chronic GERD Diverticulosis Dysphagia Estrogen deficiency Exposure to hepatitis C Fatigue Female cystocele Hernia, hiatal Poison saúl Tremor Procedure/Surgical History EGD - Esophagogastroduodenoscopy (12/05/2018), Colonoscopy (05/07/2016), Total hysterectomy via vaginal approach (1994), Biopsy of breast, Colonoscopy, Colonoscopy, laporoscopy, Tonsillectomy. Medications diclofenac sodium 75 mg Oral EC Tab, 75 mg= 1 tab(s), Oral, BID levothyroxine 25 mcg (0.025 mg) Tab, 25 mcg= 1 tab(s), Oral, Daily Pantoprazole [address] Tab, 40 mg= 1 tab(s), Oral, Daily Zetia 10 mg Tab, 10 mg= 1 tab(s), Oral, Daily, 3 refills Allergies Erythromycin ES (Rash) penicillins (Rash) Social History Alcohol - No Risk, 05/17/2019 Current, 1-2 times pe (more content not included)... [facility] Comment on above: Result Comment: Elec tronically Signed By: JACQUELINE ANTHONY, Ramy Carrizales\Date and Time Signed: 02/26/23 10:29 EDT Clinical Note 03-12-2022 Note Date & Type Note Facility 03-12-2022 Note PROCEDURE: XR HIP RT 2 3V W PELVIS COMPARISON: None. HISTORY: Hip pain FINDINGS: BONES:No acute fracture or dislocation. Minimal bilateral hip osteoarthritis. Moderate to severe degenerative changes of the spine SOFT TISSUES:Negative. No visible soft tissue swelling. EFFUSION:None visible. OTHER: Multiple suture lines in the pelvis IMPRESSION: Minimal bilateral hip osteoarthritis Electronically authenticated by: KUMAR PERALTA Date: 2022-03-12 16:56 [facility] Evaluation + Plan note Note Date & Type Note Facility Evaluation + Plan note Future Appointments Appointment Date:03/19/2023 11:00:00 AM Scheduled Provider: Location:[facility] Surgical Services Appointment Type:Surgery FT [facility] [place] Hospital course Narrative Note Date & Type Note Facility Hospital course Narrative No data available for this section [facility] Discharge instructions Note Date & Type Note Facility Hospital Discharge instructions No data available for this section [facility] [place] Progress note Note Date & Type Note Facility Progress note No data available for this section [facility] [place] Summary Purpose Family History No Family History Records Found No data available for this section No Family History Records Found Advance Directives No Advanced Directives Records FoundNo Advanced Directives Records Found Additional Source Comments INFORMATION SOURCE (unrecogn ized section and content) DATE CREATED AUTHOR 03/27/2022 [facility] DATE CREATED AUTHOR AUTHOR'S ORGANIZ ATION 07/16/2023 [facility] [facility] Patient Care team informatio n (unrecognized section and content) Personnel Name: Erica Kitchen MD Address: Address: [address] [place] [address] Personnel Name: Erica Kitchen MD Address: Address: [address] [place] [address] FOR RECORDS PERTAINING TO PATIENTS WHO ARE OR HAVE BEEN ENROLLED IN A CHEMICAL DEPENDENCY/SUBSTANCEABUSE PROGRAM, SOME INFORMATION MAY BE OMITTED. This clinical summary was aggregated from multiple sources. Caution should be exercised in using it in the provision of clinical care. This summary normalizes information from multiple sources, and as a consequence, information in this document may materially change the coding, format and clinical context of patient data. In addition, data may be omitted in some cases. CLINICAL DECISIONS SHOULD BE BASED ON THE PRIMARY CLINICAL RECORDS. [facility]. provides no warranty or guarantee of the accuracy or completeness of information in this document.
--- NOTE | 2024-04-25 22:35 | ED_ITS ---
HPI - Skin/Abscess/Foreign Bdy General Chief complaint: Skin/Abscess/Foreign Body Stated complaint: POSS BEE STING LT HAND Time Seen by Provider: 04/25/24 22:33 Source: patient Mode of arrival: walk-in Limitations: no limitations History of Present Illness HPI narrative: This 74-year-old female who is right-hand dominant presents for evaluation of finger swelling on the left hand. She was stung by a yellow jacket yesterday afternoon. Since that time her finger has been swollen and she can no longer remove her wedding ring. She denies any difficulty breathing or swallowing. She does not have any diffuse skin rash. She has taken Benadryl and used ice but the swelling past her ring is precluding her being able to remove it. Related Data Allergies Allergy/AdvReac Type Severity Reaction Status Date / Time Penicillins Allergy Mild Hives Verified 04/25/24 22:24 Review of Systems ROS Status of ROS 10 or more systems reviewed and unremark able except as noted in history and below Exam Narrative Exam Narrative: Vital signs and Nursing Notes reviewed: Patient is afebrile with a normal pulse, blood pressure is elevated 159/67, she is not hypoxic with pulse ox of 96% on room air General: Awake, alert, oriented, no acute distress, lying comfortably on the stretcher HEENT: Normocephalic atraumatic, mucous membranes are moist and pink, eyes are clear, normal conjunctiva, vision is grossly intact Extremities: Left ring finger is red and mildly swollen especially distal to the PIP joint. The patient's ring is able to be rotated but not removed. Capillary refill in the extremity is normal. Skin: Normal in appearance without rash,pallor, petechiae or purpura Neuro: No focal deficits Constitutional Vital Signs, click to edit/add: Last Vital Signs Temp 97.6 F 04/25/24 22:25 Pulse 72 04/25/24 22:25 Resp 18 04/25/24 22:25 BP 159/67 H 04/25/24 22:25 Pulse Ox 96 04/25/24 22:25 O2 Del Method Room Air 04/25/24 22:25 Course Vital Signs Vital signs: Vital Signs Temperature 97.6 F 04/25/24 22:25 Pulse Rate 72 04/25/24 22:25 Respiratory Rate 18 04/25/24 22:25 Blood Pressure 159/67 H 04/25/24 22:25 Pulse Oximetry 96 04/25/24 22:25 Oxygen Delivery Method Room Air 04/25/24 22:25 Temperature 97.6 F 04/25/24 22:25 Pulse Rate 72 04/25/24 22:25 Respiratory Rate 18 04/25/24 22:25 Blood Pressure 159/67 H 04/25/24 22:25 Pulse Oximetry 96 04/25/24 22:25 Oxygen Delivery Method Room Air 04/25/24 22:25 MDM - Skin/Abscess/Foreign Bdy MDM Narrative Medical decision making narrative: This 74-year-old female presents for evaluation of an insect bite on her left ring finger that is precluding her removing her wedding ring. Beyond the finger there is some redness and swelling. The ring is able to be rotated but not rem anabel. It was gently cut using a Raptor scissors and given to the patient for repair. I offered her Benadryl or ice for the swelling in her finger but she declines. She has Benadryl at home that she has been taking. She does not have any systemic symptoms related to the bee sting including chest pain, shortness of breath, skin rash dizziness nausea vomiting or other concerning findings. Discharge Plan Discharge Stand Alone Forms: Work/School Release, Portal Instructions Chief Complaint: Skin/Abscess/Foreign Body Clinical Impression: Bee sting reaction Patient Disposition: Home, Self-Care Time of Disposition Decision: 22:35 Condition: Good Print Language: [place]ish Instructions: Insect Bite or Sting (ED) Additional Instructions: Use benadryl and ice for finger swelling. Referrals: Yanick Kitchen MD [Primary Care Provider] - 1 week Procedures ED Procedure Instructions Procedures Procedures: Procedure note: Left fourth finger Ring removal. Verbal consent was given by the patient. The ring was removed after using Raptor scissors to break it in 2 spots. I was unable to gently pried off the patient's finger. It was given to her in toto.
== END 2024-04-25 22:44 | disposition home or self-care (01) ==
PROVIDERS: Emergency Provider Emergency Medicine; PCP Family Medicine
DX: T63.441A Toxic effect of venom of bees, accidental (unintentional), initial encounter (principal)
CPT/HCPCS: 99281

== ENCOUNTER 2025-03-19 10:55 | Outpatient (OUT) | payer MEDICARE, SELFPAY ==
--- OUTSIDE RECORDS SUMMARY | 2025-03-19 11:20 | XMS_ITS | CCD ---
Author Organization [facility]ini[facility] Care Team Providers Care Optician Apprentice Name Role Phone DR ERICA KITCHEN Primary Care Unavailable LINDA MCCALL Consulting Unavailable LINDA MCCALL Admitting Unavailable LINDA MCCALL Attending Unavailable FLORIN, DR MALDONADO Consulting Unavailable FLORIN, DR MALDONADO Admitting Unavailable FLORIN, DR MALDONADO Primary Care Unavailable FLORIN, DR MALDONADO Attending Unavailable WEST, DR KUMAR Garcia Consulting Unavailable FLORIN, DR MALDONADO Primary Care Unavailable FLORIN, DR MALDONADO Admitting Unavailable FLORIN, DR MALDONADO Attending Unavailable FLORIN, DR MALDONADO Consulting Unavailable LEO FAJARDO Consulting Unavailable LINDA MCCALL Consulting Unavailable FLORIN, DR MALDONADO Primary Care Unavailable LINDA MCCALL Admitting Unavailable LINDA MCCALL Attending Unavailable FLORIN, DR MALDONADO Primary Care Unavailable FLORIN, DR MALDONADO Admitting Unavailable FLORIN, DR MALDONADO Attending Unavailable FLORIN, DR MALDONADO Consulting Unavailable FLORIN, DR MALDONADO Primary Care Unavailable FLORIN, DR MALDONADO Admreba Unavailable FLORIN, DR MALDONADO Attending Unavailable FLORIN, DR MALDONADO Consulting Unavailable SAMIA, DR SHAYNA Cassidy Consulting Unavailable FLORIN, DR MALDONADO Consulting Unavailable FLORIN, DR MALDONADO Admitting Unavailable FLORIN, DR MALDONADO Attending Unavailable FLORIN, DR MALDONADO Primary Care Unavailable FLORIN, DR MALDONADO Consulting Unavailable FLORIN, DR MALDONADO Primary Care Unavailable FLORIN, DR MALDONADO Admitting Unavailable FLORIN, DR MALDONADO Attending Unavailable ZIBRADFORD, DR SHAYNA Cassidy Consulting Unavailable FLORIN, DR MALDONADO Consulting Unavailable FLORIN, DR MALDONADO Admitting Unavailable FLORIN, DR MALDONADO Primary Care Unavailable FLORIN, DR MALDONADO Attending Unavailable Erica Kitchen Primary Care Physician REFERRAL, SELF Admitting Unavailable REFERRAL, SELF Attending Unavailable REFERRAL, SELF Referring Unavailable Erica Kitchen Consulting Unavailable MD Erica Kitchen Consulting Unavailable Antoinette TORRES Consulting Unavailable REFERRAL, SELF Admitting Unavailable REFERRAL, SELF Attending Unavailable REFERRAL, SELF Referring Unavailable Antoinette TORRES Consulting Unavailable Antoinette TORRES Consulting Unavailable Antoinette TORRES Consulting Unavailable Antoinette TORRES Consulting Unavailable Allergies Allergy Classification Reported Allergen(s) Allergy Type Date of Onset Reaction(s) Facility (6 sources) Penicillins; Translations: [penicillins] Drug allergy (disorder) 3 Cutaneous eruption (morphologic abnormality) [facility] Repository (5 sources) Erythromycin; Translations: [erythromycin] Drug Allergy Cutaneous eruption (morphologic abnormality) General Surgery Nill/Said Stuart Medications Current Medications Medication Drug Class(es) Dates Sig (Normalized) Sig (Original) diclofenac sodium 75 mg delayed release oral tablet (4 sources) Nonsteroidal Anti-inflammatory Drug Start: 02-26-2023 take 1 tablet by mouth twice daily diclofenac sodium 75 mg Oral EC Tab 75 mg = 1 tab(s), Oral, BID, Refills(s) 0, Pain Start Date: 02/26/23 Status: Ordered ezetimibe 10 mg oral tablet (4 sources) Dietary Cholesterol Absorption Inhibitor Start: 12-25-2019 take 1 tablet by mouth once daily Zetia 10 mg Tab 10 mg = 1 tab(s), Oral, Daily, # 90 tab(s), Refills(s) 3, Pharmacy: [facility]/pharmacy #[id number], 160, cm, 08/30/19 9:30:00 EST, Height/Length Measured, 58.9, kg, 08/30/19 9:30:00 EST, Weight Measured Start Date: 12/25/19 Status: Ordered levothyroxine sodium 0.025 mg oral tablet (4 sources) l-Thyroxine Start: 02-19-2023 take 1 tablet by mouth once daily levothyroxine 25 mcg (0.025 mg) Tab 25 mcg = 1 tab(s), Oral, Daily, Refills(s) 0, Thyroid Start Date: 02/19/23 Status: Ordered pantoprazole 40 mg delayed release oral tablet (4 sources) Proton Pump Inhibitor Start: 02-26-[address] Tab 40 mg = 1 tab(s), Oral, Daily, Refills(s) 0, Control of stomach acid Start Date: 02/26/23 Status: Ordered Problems Active Problems Problem Classification Problem Date Documented Da te Episodic/Chronic Abdominal hernia (5 sources) Hiatal hernia; Translations: [Diaphragmatic hernia] Onset: 03-19-2023 08-30-2019 Episodic Anxiety disorders (4 sources) Anxiety 02-03-2019 Chronic Deficiency and other anemia (5 sources) Iron deficiency anemia; Translations: [Iron deficiency anemia, unspecified] Onset: 02-26-2023 Episodic Disorders of lipid metabolism (5 sources) Hyperlipidemia, unspecified; Translations: [Hyperlipidemia] Onset: 08-14-2021 02-03-2019 Chronic Esophageal disorders (11 sources) Gastro-esophageal reflux disease without esophagitis; Translations: [Gastroesophageal reflux disease without esophagitis] Onset: 08-14-2021 Resolved: 02-03-2019 Chronic Malaise and fatigue (8 sources) Fatigue Resolved: 02-03-2019 04-12-2019 Episodic Osteoarthritis (1 source) Bilateral primary osteoarthritis of hip; Translations: [BILATERAL PRIM OSTEOARTHRITIS HIP] Onset: 03-17-2022 Chronic Other bone disease and musculoskeletal deformities (4 sources) Osteopenia 05-17-2019 Episodic Other gastrointestinal disorders (1 source) Abnormal feces; Translations: [Other fecal abnormalities] Onset: 02-26-2023 Episodic Other gastrointestinal disorders (4 sources) Occult blood in stools 02-26-2023 Episodic Other non-traumatic joint disorders (3 sources) Pain in unspecified hip; Translations: [PAIN IN UNSPECIFIED HIP] Onset: 03-12-2022 Episodic Other non-traumatic joint disorders (1 source) Pain in right hip; Translations: [PAIN IN RIGHT HIP] Onset: 03-17-2022 Episodic Other upper respiratory infections (1 source) Chronic sinusitis, unspecified; Translations: [CHRONIC SINUSITIS UNSPECIFIED] Onset: 12-23-2021 Chronic Thyroid disorders (4 sources) Hypothyroidism 02-19-2023 Chronic Unclassified (3 sources) CONTACT W/AND (SUSP) EXPOS COVID-19; Translations: [CONTACT W/AND (SUSP) EXPOS COVID-19] Onset: 12-23-2021 Unclassified (1 source) OTHER SPECIFIED COUGH; Translations: [OTHER SPECIFIED COUGH] Onset: 07-19-2021 Unclassified (4 sources) Body mass index 20-24 - normal 02-26-2023 Past or Other Problems Problem Classification Problem Date Documented Da te Episodic/Chronic Acute bronchitis (4 sources) Acute bronchitis, unspecified; Translations: [ACUTE BRONCHITIS UNSPECIFIED] Onset: 07-19-2021 Episodic Allergic reactions (4 sources) Contact dermatitis due to poison saúl Resolved: 02-03-2019 04-03-2019 Episodic Deficiency and other anemia (1 source) Anemia, unspecified; Translations: [ANEMIA UNSPECIFIED] Onset: 08-14-2021 Episodic Diabetes mellitus without complication (1 source) Other abnormal glucose; Translations: [OTHER ABNORMAL GLUCOSE] Onset: 08-14-2021 Episodic Diverticulosis and diverticulitis (5 sources) Diverticula of intestine; Translations: [Diverticulosis of large intestine without perforation or abscess without bleeding] Onset: 03-19-2023 Resolved: 02-03-2019 04-03-2019 Chronic Fever of unknown origin (1 source) Fever, unspecified; Translations: [FEVER UNSPECIFIED] Onset: 07-19-2021 Episodic Immunizations and screening for infectious disease (4 sources) Exposure to Hepatitis C virus Resolved: 02-03-2019 04-12-2019 Episodic Menopausal disorders (8 sources) Other primary ovarian failure; Translations: [Decreased estrogen level] Onset: 08-13-2021 Resolved: 02-03-2019 Chronic Nonmalignant breast conditions (4 sources) Breast lump Resolved: 03-24-2012 04-12-2019 Episodic Comment on above: right breast Other bone disease and musculoskeletal deformities (1 source) Other specified disorders of bone density and structure, unspecified site; Translations: [OTH D/O BONE DEN STRUCT UNS SITE] Onset: 08-14-2021 Episodic Other gastrointestinal disorders (4 sources) Dysphagia Resolved: 02-03-2019 04-03-2019 Episodic Other nervous system disorders (4 sources) Tremor Resolved: 02-03-2019 04-03-2019 Episodic Other screening for suspected conditions (not mental disorders or infectious disease) (9 sources) Abnormal findings on diagnostic imaging of other parts of musculoskeletal system; Translations: [Encounter for screening for malignant neoplasm of rectum] Onset: 08-14-2021 Resolved: 02-03-2019 Episodic Other skin disorders (4 sources) Localized swelling, mass and lump, trunk; Translations: [LOCALIZD SWELLING MASS AND LUMP TRUNK] Onset: 07-26-2021 Episodic Other upper respiratory disease (4 sources) Allergic rhinitis Resolved: 02-03-2019 04-12-2019 Chronic Other upper respiratory infections (4 sources) Acute maxillary sinusitis Resolved: 04-03-2019 04-12-2019 Episodic Prolapse of female genital organs (4 sources) Cystocele Resolved: 02-03-2019 04-12-2019 Chronic Residual codes; unclassified (1 source) Asymptomatic menopausal state; Translations: [ASYMPTOMATIC MENOPAUSAL STATE] Onset: 08-14-2021 Episodic Residual codes; unclassified (4 sources) Postmenopausal state Resolved: 02-03-2019 04-12-2019 Episodic Unclassified (1 source) CONTACT W/AND (SUSP) EXPOS COVID-19; Translations: [CONTACT W/AND (SUSP) EXPOS COVID-19] Onset: 12-19-2021 Results Test Name Value Interpretation Reference Range Facility [place] Mamm Screen w/CAD if perf and 3D [place] 06-13-2024 MA Mamm Screen w/CAD if perf and 3D [place] Exam Date/Time: 06/09/2024 08:41 EDT Reason for Exam: Z12.31 Report IMPRESSION: BIRADS 2 BENIGN FINDINGS, NORMAL INTERVAL FOLLOW-UP.12 MONTH RECALL. CLINICAL HISTORY: Z12.31. COMPARISON: 07/12/2023. COMMENT: Routine views and tomosynthesis views of both breasts were obtained. The breasts are heterogeneously dense, which may obscure small masses. There is a coarse benign-appearing calcification in the central right breast. No dominant breast mass nor neoplastic calcifications are noted. The examination was reviewed with Computer Aided Detection. Breast Density: Yes Mammography is very important to your health. The current [employer] and National Comprehensive Cancer Network guidelines recommends annual mammography beginning at age 40. This facility utilizes a reminder system to ensure all patients receive reminder notifications at the appropriate time based on the recommendations of this exam. Board Certified Radiologists. Accredited by the ACR and FDA. Ordering Provider: REFERRAL, SELF FINAL REPORT Dictated: 06/13/2024 10:40 am James Ennis M.D. Signed (Electronic Signature): 06/13/2024 10:40 am Signed by: James Ennis M.D. Transcribed by: ILENE Technologist: [facility] Assessment: BI-RADS Category 2-Benign finding Recommendation: Normal interval follow-up [facility] [place] Mamm Screen w/CAD if perf and [...] very important to your health. The current [employer] and National Comprehensive Cancer [...] Category 1-Negative Recommendation: Normal interval follow-up Normal [facility] Consent for Treatmenton - Consent for Treatment [id number] Normal [facility] MRI LSPINE WO CONon 03-23-20 MRI [facility] WO CON EXAM: MRI of the lumbar spine without contrast 2022. COMPARISON: Lumbar spine [...] no central stenosis. L4-L5: There are bilateral subarticular/foramina l disc protrusions measuring 5 mm on the [...] without central stenosis. L2-L3: There are bilateral subarticular/foramina l disc protrusions with moderate facet arthropathy. Mild [...] at L5-S1. 3. There is also a subarticular/foramina l disc protrusions bilaterally at L4-L5 resulting in moderate to severe left and mild right foraminal narrowing at L4-L5. Electronically authenticated by: LEO FAJARDO Date: 2022 15:15 Normal [facility] XR LSPINE MIN 4 VIEWSon 02-21 XR LSPINE MIN 4 VIEWS EXAMINATION: XR LSPINE MIN 4 VIEWS HISTORY: Hip pain COMPARISON: [...] KUMAR PERALTA Date: 2022-03-12 16:54 Normal [facility] Covid-19 PCR ([facility])on 11-22 SARS-CoV-2 (COVID-19) RNA CARLEE+probe Ql (Unsp spec) Not detected Normal NOT DETECTED [facility] Comment on above: Result Comment: This test is not yet approved or cleared by the [place] FDA. When there are no FDA-approved or cleared tests available, and other criteria are met, FDA can make tests available under an emergency access mechanism called an Emergency Use Authorization (EUA). The EUA for this test is supported by the [employer] of Health and Human Service's (HHS's) declaration [...] consistent with SARS-CoV-2. Performed By: #### C VDTB #### [facility] [address] [place] [address] Dr. Francesca Cook INFLUENZA A AND B AGon 11-22 [facility] SEE BELOW Normal [facility] Comment on above: Result Comment: Nega tive for Flu A protein angiten. Infection due to Flu A cannot be ruled out. Flu A angiten in the sample may be below the detection limit of the test. Performed By: #### C VDTBH #### [facility] [address] [place] [address] Dr. Francesca Cook [facility] SEE BELOW Normal [facility] Comment on above: Result Comment: Nega tive for Flu B protein antigen. Infection due to Flu B cannot be ruled out. Flu B antigen in the sample may be below the detection limit of the test. Performed By: #### C VDTBH #### [facility] [address] [place] [address] Dr. Francesca Cook INFLUENZA A AG Negative Normal NEGATIVE SEE COMMENT [facility] Comment on above: Performed By: #### C VDTBH #### [facility] [address] [place] [address] Dr. Francesca Cook INFLUENZA B AG Negative Normal NEGATIVE SEE COMMENT [facility] Comment on above: Performed By: #### C VDTBH #### [facility] [address] [place] [address] Dr. Francesca Cook INTERNAL CONTROLS Within Normal Limits Normal Wi thin Normal Limits [facility] Comment on above: Performed By: #### C VDTBH #### [facility] [address] [place] [address] Dr. Francesca Cook CBC AUTO DIFFon 08-13-2021 BASO # 0.0 103/ul Normal 0.0-0.1 [facility] Comment on above: Performed By: #### C BC #### [facility] [address] [place] [address] Dr. Francesca Cook Basophils/100 WBC (Bld) 0.4 % Normal 0.2-2.0 [facility] Comment on above: Performed By: #### C BC #### [facility] [address] [place] [address] Dr. Francesca Cook EO # 0.1 103/ul Normal 0.0-0.7 [facility] Comment on above: Performed By: #### C BC #### [facility] [address] [place] [address] Dr. Francesca Cook Eosinophils/100 WBC (Bld) 2.0 % Normal 0.9-7.0 [facility] Comment on above: Performed By: #### C BC #### [facility] [address] [place] [address] Dr. Francesca Cook Erythrocyte distribution width (RBC) [Ratio] 13.8 % Normal 11.0-15.0 [facility] Comment on above: Performed By: #### C BC #### [facility] [address] [place] [address] Dr. Francesca Cook Hematocrit (Bld) [Volume fraction] 39.8 % Normal 36.0-48.0 [facility] Comment on above: Performed By: #### C BC #### [facility] [address] [place] [address] Dr. Francesca Cook Hemoglobin (Bld) [Mass/Vol] 12.7 g/dL Normal 12.0-16.0 [facility] Comment on above: Performed By: #### C BC #### [facility] [address] [place] [address] Dr. Francesca Cook IG # 0.02 10e3/ul Normal 0.00-0.03 [facility] Comment on above: Performed By: #### C BC #### [facility] [address] [place] [address] Dr. Francesca Cook IG % 0.4 % Normal 0.0-0.5 [facility] Comment on above: Performed By: #### C BC #### [facility] [address] [place] [address] Dr. Francesca Cook LYMPH # 1.2 103/ul Normal 1.2-3.8 [facility] Comment on above: Performed By: #### C BC #### [facility] [address] [place] [address] Dr. Francesca Cook Lymphocytes/100 WBC (Bld) 21.7 % Normal 20.5-60.0 [facility] Comment on above: Performed By: #### C BC #### [facility] [address] [place] [address] Dr. Francesca Cook MANUAL DIFF REQ NO Normal [facility] Comment on above: Performed By: #### C BC #### [facility] [address] [place] [address] Dr. Francesca Cook MCH (RBC) [Entitic mass] 30.4 pg Normal 26.7-34.0 [facility] Comment on above: Performed By: #### C BC #### [facility] [address] [address] [address] Francesca Cook MCHC (RBC) [Mass/Vol] 31.9 g/dL Normal 29.9-35.2 [facility] Comment on above: Performed By: #### C BC #### [facility] [address] [place] [address] Dr. Francesca Cook MCV (RBC) [Entitic vol] 95.2 fL Normal 81.0-99.0 [facility] Comment on above: Performed By: #### C BC #### [facility] [address] [place] [address] Dr. Francesca Cook MONO # 0.6 103/ul Normal 0.3-0.8 [facility] Comment on above: Performed By: #### C BC #### [facility] [address] [place] [address] Dr. Francesca Cook Monocytes/100 WBC (Bld) 10.6 % Normal 1.7-12.0 [facility] Comment on above: Performed By: #### C BC #### [facility] [address] [place] [address] Dr. Francesca Cook NEUT # 3.5 103/ul Normal 1.4-6.5 [facility] Comment on above: Performed By: #### C BC #### [facility] [address] [place] [address] Dr. Francesca Cook Neutrophils/100 WBC (Bld) 64.9 % Normal 43.0-75.0 [facility] Comment on above: Performed By: #### C BC #### [facility] [address] [place] [address] Dr. Francesca Cook Platelet mean volume (Bld) [Entitic vol] 9.6 fL Normal 9.5-13.5 [facility] Comment on above: Performed By: #### C BC #### [facility] [address] [place] [address] Dr. Francesca Cook PLT 325 103/ul Normal 150-450 [facility] Comment on above: Performed By: #### C BC #### [facility] [address] [place], [place] [id number] Dr. Francesca Cook RBC 4.18 106/ul Critically low 4.20-5.40 [facility] Comment on above: Performed By: #### C BC #### [facility] [address] [address] [address] Francesca Cook WBC 5.4 103/ul Normal 4.0-11.0 [facility] Comment on above: Performed By: #### C BC #### [facility] [address] [address] [address] Francesca Cook FREE THYROXINE INDEX T7on FTI 2.70 Normal [facility] Comment on above: Performed By: #### C MP, T7, TSH, LIPID #### [facility] [address] [place] [address] Dr. Francesca Cook T3U 31.0 % Normal 23.5-40.5 [facility] Comment on above: Performed By: #### C MP, T7, TSH, LIPID #### [facility] [address] [place] [address] Dr. Francesca Cook T4 [Mass/Vol] 8.70 ug/dL Normal 5.53-11.00 [facility] Comment on above: Performed By: #### C MP, T7, TSH, LIPID #### [facility] [address] [place] [address] Dr. Francesca Cook GLYCOHEMOGLOBIN A1Con 2020 ADA RECOMMENDATION ADA THERAPEUTIC TARGET 6.0 - 7.0 ACTION SUGGESTED > 7.0 Normal [facility] Comment on above: Performed By: #### A 1C #### [facility] [address] [place] [address] Dr. Francesca Cook Glucose [Mass/Vol] 126 mg/dL Normal [facility] Comment on above: Performed By: #### A 1C #### [facility] [address] [place] [address] Dr. Francesca Cook HbA1c (Bld) [Mass fraction] 6.0 % Normal <=6.0 [facility] Comment on above: Performed By: #### A 1C #### [facility] [address] [address] [address] Francesca Cook IRONon 08-13-2021 Iron [Mass/Vol] 102.0 ug/dL Normal 37.0-170.0 [facility] Comment on above: Performed By: #### C VDTBH #### [facility] [address] [place] [address] Dr. Francesca Cook LIPID PROFILEon 08-13-2021 CHOL-HDL RATIO NORM SEE BELOW Normal [facility] Comment on above: Result Comment: 3.3 - 4.4 LOW RISK 4.4 - 7.1 AVERAGE RISK 7.1 - 11.0 MODERATE RISK >11.0 HIGH RISK Performed By: #### C MP, T7, TSH, LIPID #### [facility] [address] [place] [address] Dr. Francesca Cook Cholesterol [Mass/Vol] 247 mg/dL Critically high <=200 [facility] Comment on above: Performed By: #### C MP, T7, TSH, LIPID #### [facility] [address] [place] [address] Dr. Francesca Cook Cholesterol in HDL [Mass/Vol] 108 mg/dL Normal [facility] Comment on above: Performed By: #### C MP, T7, TSH, LIPID #### [facility] [address] [place] [address] Dr. Francesca Cook Cholesterol in LDL [Mass/Vol] 126.4 mg/dL Normal [facility] Comment on above: Performed By: #### C MP, T7, TSH, LIPID #### [facility] [address] [place] [address] Dr. Francesca Cook Cholesterol.total/Cho lesterol in HDL [Mass ratio] 2.3 {ratio} Normal [facility] Comment on above: Performed By: #### C MP, T7, TSH, LIPID #### [facility] [address] [place] [address] Dr. Francesca Cook HDL NORMAL > or = 60 mg/dl - LO W CARDIOVASCULAR RISK <40 mg/dl - HIGH CARDIOVASCULAR RISK Normal [facility] Comment on above: Performed By: #### C MP, T7, TSH, LIPID #### [facility] [address] [address] [address] Francesca Cook LDL CALC NORMAL SEE BELOW Normal [facility] Comment on above: Result Comment: <100 mg/dl OPTIMAL 100 - 129 mg/dl NEAR OR ABOVE OPTIMAL 130 - 159 mg/dl BORDERLINE HIGH 160 - 189 mg/dl HIGH >190 mg/dl VERY HIGH Performed By: #### C MP, T7, TSH, LIPID #### [facility] [address] [address] [address] Francesca Cook Triglyceride [Mass/Vol] 63 mg/dL Normal <=150 [facility] Comment on above: Performed By: #### C MP, T7, TSH, LIPID #### [facility] [address] [place] [address] Dr. Francesca Cook VLDL CALC 12.6 mg/dL Normal [facility] Comment on above: Performed By: #### C MP, T7, TSH, LIPID #### [facility] [address] [place] [address] Dr. Francesca Cook OCC BLD IMMUNO SCREENon 07-24 OCCULT BLOOD Negative Normal NEGATIVE [facility] Comment on above: Performed By: #### O BSCRN #### [facility] [address] [place] [address] Dr. Francesca Cook PROF 14(COMP METB)on 021 Albumin [Mass/Vol] 3.5 g/dL Normal 3.5-5.0 [facility] Comment on above: Performed By: #### C MP, T7, TSH, LIPID #### [facility] [address] [place] [address] Dr. Francesca Cook Albumin/Globulin [Mass ratio] 0.9 {ratio} Normal [facility] Comment on above: Performed By: #### C MP, T7, TSH, LIPID #### [facility] [address] [place] [address] Dr. Francesca Cook ALP [Catalytic activity/Vol] 70 U/L Normal 38-126 [facility] Comment on above: Performed By: #### C MP, T7, TSH, LIPID #### [facility] [address] [address] [address] Francesca Cook ALT [Catalytic activity/Vol] 23 U/L Normal 9-52 [facility] Comment on above: Performed By: #### C MP, T7, TSH, LIPID #### [facility] [address] [address] [address] Francesca Cook Anion gap [Moles/Vol] 8.0 mmol/L Normal [facility] Comment on above: Performed By: #### C MP, T7, TSH, LIPID #### [facility] [address] [address] [address] Francesca Cook AST [Catalytic activity/Vol] 16 U/L Normal 14-36 [facility] Comment on above: Performed By: #### C MP, T7, TSH, LIPID #### [facility] [address] [address] [address] Francesca Cook Bilirubin [Mass/Vol] 0.7 mg/dL Normal 0.2-1.3 [facility] Comment on above: Performed By: #### C MP, T7, TSH, LIPID #### [facility] [address] [address] [address] Francesca Cook Calcium [Mass/Vol] 9.4 mg/dL Normal 8.4-10.2 [facility] Comment on above: Performed By: #### C MP, T7, TSH, LIPID #### [facility] [address] [address] [address] Francesca Cook Chloride [Moles/Vol] 102 mmol/L Normal 98-107 [facility] Comment on above: Performed By: #### C MP, T7, TSH, LIPID #### [facility] [address] [address] [address] Francesca Cook CO2 [Moles/Vol] 32.7 mmol/L Critically high 22.0-30.0 [facility] Comment on above: Performed By: #### C MP, T7, TSH, LIPID #### [facility] [address] [address] [address] Francesca Cook Creatinine [Mass/Vol] 0.84 mg/dL Normal 0.52-1.04 [facility] Comment on above: Performed By: #### C MP, T7, TSH, LIPID #### [facility] [address] [place] [address] Dr. Francesca Cook EGFR-AF BERMUDIAN >60 Normal >=60 [facility] Comment on above: Performed By: #### C MP, T7, TSH, LIPID #### [facility] [address] [place] [address] Dr. Francesca Cook EGFR-NON AF BERMUDIAN >60 Normal >=60 [facility] Comment on above: Performed By: #### C MP, T7, TSH, LIPID #### [facility] [address] [place] [address] Dr. Francesca Cook Globulin (S) [Mass/Vol] 3.7 g/dL Normal [facility] Comment on above: Performed By: #### C MP, T7, TSH, LIPID #### [facility] [address] [place] [address] Dr. Francesca Cook Glucose [Mass/Vol] 100 mg/dL Normal 74-106 [facility] Comment on above: Performed By: #### C MP, T7, TSH, LIPID #### [facility] [address] [place] [address] Dr. Francesca Cook Potassium [Moles/Vol] 3.7 mmol/L Normal 3.4-5.0 [facility] Comment on above: Performed By: #### C MP, T7, TSH, LIPID #### [facility] [address] [place] [address] Dr. Francesca Cook Protein [Mass/Vol] 7.2 g/dL Normal 6.1-8.2 [facility] Comment on above: Performed By: #### C MP, T7, TSH, LIPID #### [facility] [address] [place] [address] Dr. Francesca Cook Sodium [Moles/Vol] 139 mmol/L Normal 137-145 [facility] Comment on above: Performed By: #### C MP, T7, TSH, LIPID #### [facility] [address] [place] [address] Dr. Francesca Cook Urea nitrogen [Mass/Vol] 19.0 mg/dL Critically high 7.0-17.0 [facility] Comment on above: Performed By: #### C MP, T7, TSH, LIPID #### [facility] [address] [place] [address] Dr. Francesca Cook Urea nitrogen/Creatinine [Mass ratio] 22.6 mg/mg Normal [facility] Comment on above: Performed By: #### C MP, T7, TSH, LIPID #### [facility] [address] [place] [address] Dr. Francesca Cook TSHon 08-13-2021 TSH 3.946 uIU/mL Normal 0.470-4.680 [facility] Comment on above: Performed By: #### C MP, T7, TSH, LIPID #### [facility] [address] [place] [address] Dr. Francesca Cook TSH RANGE SEE BELOW Normal [facility] Comment on above: Result Comment: <0.3 4 UIU/ml HYPERTHYROID 0.34-5.60 UIU/ml EUTHYROID >5.60 UIU/ml HYPOTHYROID Performed By: #### C MP, T7, TSH, LIPID #### [facility] [address] [place] [address] CHEST W CONon [...] by: SHAYNA GRACIA Date: 2021-07-28 07:12 Normal [facility] CREATININEon 07-26-2021 Creatinine [Mass/Vol] 0.72 mg/dL Normal 0.52-1.04 [facility] Comment on above: Performed By: #### C MALLY #### [facility] [address] [place] [address] Dr. Francesca Cook EGFR-AF BERMUDIAN >60 Normal >=60 [facility] Comment on above: Performed By: #### C MALLY #### [facility] [address] [place] [address] Dr. Francesca Cook EGFR-NON AF BERMUDIAN >60 Normal >=60 [facility] Comment on above: Performed By: #### C MALLY #### [facility] [address] [place] [address] Dr. Francesca Cook CULTURE SPUTUMon 07-19-2021 CULTURE SPUTUM Culture Observations : NORMAL RESPIRATORY KEITH. Normal [facility] Comment on above: Performed By: #### C VDTBH #### [facility] [address] [place] [address] Dr. Francesca Cook SPUTUM GRAM STAINon 07-19-20 COMMENTS Normal [facility] Comment on above: Performed By: #### C VDTBH #### [facility] [address] [place] [address] Dr. Francesca Cook DIPHTHEROIDS Normal [facility] Comment on above: Performed By: #### C VDTBH #### [facility] [address] [place] [address] Dr. Francesca Cook EPITHELIALS <25 Normal [facility] Comment on above: Performed By: #### C VDTBH #### [facility] [address] [address] [address] Francesca Cook FUNGAL ELEMENTS Normal [facility] Comment on above: Performed By: #### C VDTBH #### [facility] [address] [address] [address] Francesca Cook GRAM NEG BACILLI Normal [facility] Comment on above: Performed By: #### C VDTBH #### [facility] [address] [address] [address] Francesca Cook GRAM NEG DIPPLOCOCCI Normal [facility] Comment on above: Performed By: #### C VDTBH #### [facility] [address] [address] [address] Francesca SHORT POS BACILLI FEW Normal [facility] Comment on above: Performed By: #### C VDTBH #### [facility] [address] [address] [address] Francesca Cook GRAM POSITIVE COCCI MODERATE Normal [facility] Comment on above: Performed By: #### C VDTBH #### [facility] [address] [address] [address] Francesca Cook WBC (Bld) [#/Vol] 10*3/uL Normal [facility] Comment on above: Performed By: #### C VDTBH #### [facility] [address] [address] [address] Francesca Cook XR CHEST 2 Von [...] SHAYNA GRACIA Date: 2021-07-18 12:21 Normal [facility] Covid-19 PCR (CVDTB)on 06-23 SARS-CoV-2 (COVID-19) RNA CARLEE+probe Ql (Unsp spec) Not detected Normal NOT DETECTED [facility] Comment on above: Result Comment: This test is not yet approved or cleared by the [place] FDA. When there are no FDA-approved or cleared tests available, and other criteria are met, FDA can make tests available under an emergency access mechanism called an Emergency Use Authorization (EUA). The EUA for this test is supported by the [place] of Health and Human Service's (HHS's) declaration [...] consistent with SARS-CoV-2. Performed By: #### [facility] #### [facility] [address] [place] [address] Dr. Francesca Cook Vital Signs Date Time Vital Sign Value Performing Clinician Dora lacey 03-19-2023 11:15-0400 Diastolic blood pressure 67 mm[Hg] Ramy PHILLIPS [facility] 03-19-2023 11:15-0400 Heart rate 68 /min Ramy PHILLIPS [facility] 03-19-2023 11:15-0400 Respiratory rate 15 /min Ramy PHILLIPS [facility] 03-19-2023 11:15-0400 SaO2% (BldA) [Mass fraction] 96 % Ramy NILL [facility] 03-19-2023 11:15-0400 Systolic blood pressure 104 mm[Hg] Ramy NILL [facility] 03-19-2023 11:05-0400 Diastolic blood pressure 63 mm[Hg] Ramy NILL [facility] 03-19-2023 11:05-0400 Heart rate 70 /min Ramy NILL [facility] 03-19-2023 11:05-0400 Respiratory rate 19 /min Ramy NILL [facility] 03-19-2023 11:05-0400 SaO2% (BldA) [Mass fraction] 95 % Ramy NILL [facility] 03-19-2023 11:05-0400 Systolic blood pressure 97 mm[Hg] Ramy NILL [facility] 03-19-2023 11:00-0400 Diastolic blood pressure 51 mm[Hg] Ramy NILL [facility] 03-19-2023 11:00-0400 Heart rate 69 /min Ramy NILL [facility] 03-19-2023 11:00-0400 SaO2% (BldA) [Mass fraction] 94 % Ramy NILL [facility] 03-19-2023 11:00-0400 Systolic blood pressure 96 mm[Hg] Ramy NILL [facility] 03-19-2023 10:50-0400 Body temperature 97.88 [degF] Ramy NILL [facility] 03-19-2023 10:20-0400 Respiratory rate 12 /min Ramy NILL [facility] 03-19-2023 09:33-0400 Blood Pressure Location Ramy NILL [facility] 03-19-2023 09:33-0400 Body temperature 96.8 [degF] Ramy NILL [facility] 02-26-2023 09:35-0400 Blood Pressure Location Ramy NILL [facility] 02-26-2023 09:35-0400 Diastolic blood pressure 54 mm[Hg] Ramy NILL [facility] 02-26-2023 09:35-0400 Heart rate 112 /min Ramy NILL [facility] 02-26-2023 09:35-0400 Respiratory rate 16 /min Ramy NILL [facility] 02-26-2023 09:35-0400 Systolic blood pressure 154 mm[Hg] Ramy NILL [facility] Encounters Encounter Date Encounter Type Care Provider Facility Start: 06-09-2024 End: 06-09-2024 ambulatory SELF REFERRAL Facility:[facility] Start: 06-09-2024 End: 06-09-2024 Patient encounter procedure SELF REFERRAL [facility] Start: 07-12-2023 End: 07-12-2023 ambulatory SELF REFERRAL Facility:[facility] Start: 07-12-2023 End: 07-12-2023 Patient encounter procedure SELF REFERRAL [facility] Start: 03-19-2023 End: 03-19-2023 Patient encounter procedure Ramy PHILLIPS [facility] Start: 02-26-2023 End: 02-26-2023 Patient encounter procedure Ramy PHILLIPS [facility] [place] Start: 2022 End: 03-24-[address] ERICA [...] Procedure Detail Performing Clinician Start: 03-19-2023 Colonoscopy Ramy WATTSL Start: 03-19-2023 Esophagogastroduodenoscopy Ramy WATTSL Start: 12-05-2018 Esophagogastroduodenoscopy Ramy WATTSL Start: 05-07-2016 Colonoscopy Ramy WATTSL Start: 08-23-1994 Total hysterectomy via vaginal approach Ramy WATTSL Biopsy of breast Ramy WATTS L Comment on above: right Colonoscopy Ramy NILL laporoscopy 2 Ramy NILL Comment on above: for endometriosis mid Tonsillectomy Ramy WATTSL Comment on above: fall 1955 Immunizations Immunization Date Immunization Notes Care Provider Fa cility 10-15-2020 SARS-CoV-2 (COVID-19 ) mRNA BNT-162b2 vax Ramy WATTSL [facility] 09-24-2020 SARS-CoV-2 (COVID-19 ) mRNA BNT-162b2 vax Ramy WATTSL [facility] 04-23-2019 influenza virus vaccine, live, attenuated, for intranasal use Ramy WATTSL [facility] Nill/Said [place] Payers Date Payer Category Payer Medicare [id number] 1960 Medicare [id number] 1950 Unknown [id number] 2.16.84 [id number] 1950 Unknown [id number] 2.16.84 [id number] 1950 Unknown [id number] 2.16.84 [id number] 1950 Unknown [id number] 2.16.84 [id number] 1949 Unknown [id number] 2.16.84 [id number] 1949 Unknown [id number] 2.16.84 [id number] 1949 Unknown [id number] 2.16.84 [id number] 1949 Unknown [id number] 2.16.84 [id number] 1949 Unknown [id number] 2.16.84 [id number] 1949 Unknown [id number] 2.16.8 [id number] 1950 Unknown [id number] 2.16.8 [id number] Social History Date Type Detail Facility Start: 02-26-2023 Tobacco smoking status Never s moked tobacco (finding) [facility] Tobacco smoking status Never [facility] Sex Assigned At Female [facility] Functional Status Date Assessment Result Facility 03-19-2023 Functional Status N/A [facility] 02-26-2023 Functional Status N/A [facility] Evaluation + Plan note 03-19-2023 Note Date & Type Note Facility 03-19-2023 Evaluation + Plan note Extrac keshav from: Title:ANES Post-operative Note - General Author: Jose Eduardo Rasmussen Jr., DO Date:03/19/23 Plan Transfer/Discharge: Transfer/Discharge Discharge when meets criteria ( From PACU to Ambulatory Surgery Unit, and To home ). Extracted from: Title:ANES Pre-operative Note - Endo Author:Jose Eduardo Ratliff Jr., DO Date:03/19/23 Plan [place] [employer] (ASA) physical status classification: Class II. Anesthetic Preoperative Plan: Anesthesia General, and -TIVA. [facility] Hospital Discharge instructions 03-19-2023 Note Date & Type Note Facility 03-19-2023 Hospital Discharg e instructions Patient Education 03/19/2023 10:59:59 Endoscopy, Care After Procedure [facility] Endoscopy Care After Procedure Please read the [...] doctor. ACTIVITY You may resume your regular activity but move at a slower pace for the next 24 hours. Take frequent rest periods for the next 24 hours. Walking will help expel (get rid of) the air and reduce the bloated feeling in your abdomen. No driving for 24 hours (because of the anesthesia (medicine) used during the test). You may shower. Do not sign any important legal documents or operate any machinery for 24 hours (because of the anesthesia used during the test). NUTRITION Drink plenty of fluids. You may resume your normal diet. Begin with a light meal and progress to your normal diet. Avoid alcoholic beverages for 24 hours or as instructed by your caregiver. MEDICATIONS You may resume your normal medications unless your caregiver tells you otherwise. WHAT YOU CAN EXPECT TODAY You may experience abdominal discomfort such as a feeling of fullness or gas pains. FOLLOW-UP Your doctor will discuss the results of your test with you. SEEK IMMEDIATE MEDICAL ATTENTION IF ANY OF THE FOLLOWING OCCUR: Excessive nausea (feeling sick to your stomach) and/or vomiting. Severe abdominal pain and distention (swelling). Trouble swallowing. Temperature over 100 F (37.8 C). Rectal bleeding or vomiting of blood. Document Released: 2005 Document Re-Released: 01/31/2007 [employer] Patient Information [employer] 03/19/2023 10:59:57 Colonoscopy, Care After Surgery Daniel (CUSTOM) Colonoscopy Care After Surgery Please read the [...] severe or gets worse throughout the day. 03/19/2023 10:59:50 Diverticulosis (CUSTOM) Diverticulosis Diverticulosis is a condition that develops [...] you more likely to develop this condition: Being older than age 60. Your risk for this condition increases with age. Diverticulosis is rare among people younger than age 30. By age 80, many people have it. Eating a low-fiber diet. Having frequent constipation. Being overweight. Not getting enough exercise. Smoking. Taking lifh-dge-dieyqmo pain medicines, like aspirin and ibuprofen. Having a family history of diverticulosis. What are the signs or symptoms? In most people, there are no symptoms of this condition. If you do have symptoms, they may include: Bloating. Cramps in the abdomen. Constipation or diarrhea. Pain in the lower left side of the abdomen. How is this diagnosed? This condition is most often diagnosed during an exam for other colon problems. Because diverticulosis usually has no symptoms, it often cannot be diagnosed independently. This condition may be diagnosed by: Using a flexible scope to examine the colon (colonoscopy). Taking an X-ray of the colon after dye has been put into the colon (barium enema). Doing a CT scan. How is this treated? You may not need treatment for this condition if you have never developed an infection related to diverticulosis. If you have had an infection before, treatment may include: Eating a high-fiber diet. This may include eating more fruits, vegetables, and grains. Taking a fiber supplement. Taking a live bacteria supplement (probiotic). Taking medicine to relax your colon. Taking antibiotic medicines. Follow these instructions at home: Drink 6 8 glasses of water or more each day to prevent constipation. Try not to strain when you have a bowel movement. If you have had an infection before: ?Eat more fiber as directed by your health care provider or your diet and certified nutritionist (dietitian). ?Take a fiber supplement or probiotic, if your health care provider approves. Take emyw-jgm-gykwhwz and prescription medicines only as told by your health care provider. If you were prescribed an antibiotic, take it as told by your health care provider. Do not stop taking the antibiotic even if you start to feel better. Keep all follow-up visits as told by your health care provider. This is important. Contact a health care provider if: You have pain in your abdomen. You have bloating. You have cramps. You have not had a bowel movement in 3 days. Get help right away if: Your pain gets worse. Your bloating becomes very bad. You have a fever or chills, and your symptoms suddenly get worse. You vomit. You have bowel movements that are bloody or black. You have bleeding from your rectum. Summary Diverticulosis is a condition that develops when small pouches (diverticula) form in the wall of the large intestine (colon). You may have a few pouches or many of them. This condition is most often diagnosed during an exam for other colon problems. If you have had an infection related to diverticulosis, treatment may include increasing the fiber in your diet, taking supplements, or taking medicines. This information is not intended to replace advice given to you by your health care provider. Make sure you discuss any questions you have with your health care provider. Document Released: 05/06/2005 Document Revised: 07/22/2018 Document Reviewed: 06/28/2017 [employer] Patient Education 2020 [employer] 03/19/2023 10:59:46 Hiatal Hernia Hiatal Hernia A hiatal hernia occurs when part of the stomach slides above the muscle that separates the abdomen from the chest (diaphragm). A person can be born with a hiatal hernia (congenital), or it may develop over time. In almost all cases of hiatal hernia, only the top part of the stomach pushes through the diaphragm. Many people have a hiatal hernia with no symptoms. The larger the hernia, the more likely it is that you will have symptoms. In some cases, a hiatal hernia allows stomach acid to flow back into the tube that carries food from your mouth to your stomach (esophagus). This may cause heartburn symptoms. Severe heartburn symptoms may mean that you have developed a condition called gastroesophageal reflux disease (GERD). What are the causes? This condition is caused by a weakness in the opening (hiatus) where the esophagus passes through the diaphragm to attach to the upper part of the stomach. A person may be born with a weakness in the hiatus, or a weakness can develop over time. What increases the risk? This condition is more likely to develop in: Older people. Age is a major risk factor for a hiatal hernia, especially if you are over the age of 50. women. People who are overweight. People who have frequent constipation. What are the signs or symptoms? Symptoms of this condition usually develop in the form of GERD symptoms. Symptoms include: Heartburn. Belching. Indigestion. Trouble swallowing. Coughing or wheezing. Sore throat. Hoarseness. Chest pain. Nausea and vomiting. How is this diagnosed? This condition may be diagnosed during testing for GERD. Tests that may be done include: X-rays of your stomach or chest. An upper gastrointestinal (GI) series. This is an X-ray exam of your GI tract that is taken after you swallow a chalky liquid that shows up clearly on the X-ray. Endoscopy. This is a procedure to look into your stomach using a thin, flexible tube that has a tiny camera and light on the end of it. How is this treated? This condition may be treated by: Dietary and lifestyle changes to help reduce GERD symptoms. Medicines. These may include: ?Jbxn-sya-ejxgqxb antacids. ?Medicines that make your stomach empty more quickly. ?Medicines that block the production of stomach acid (H2 blockers). ?Stronger medicines to reduce stomach acid (proton pump inhibitors). Surgery to repair the hernia, if other treatments are not helping. If you have no symptoms, you may not need treatment. Follow these instructions at home: Lifestyle and activity Do not use any products that contain nicotine or tobacco, such as cigarettes and e-cigarettes. If you need help quitting, ask your health care provider. Try to achieve and maintain a healthy body weight. Avoid putting pressure on your abdomen. Anything that puts pressure on your abdomen increases the amount of acid that may be pushed up into your esophagus. ?Avoid bending over, especially after eating. ?Raise the head of your bed by putting blocks under the legs. This keeps your head and esophagus higher than your stomach. ?Do not wear tight clothing around your chest or stomach. ?Try not to strain when having a bowel movement, when urinating, or when lifting heavy objects. Eating and drinking Avoid foods that can worsen GERD symptoms. These may include: ?Fatty foods, like fried foods. ?[place] fruits, like oranges or lemon. ?Other foods and drinks that contain acid, like orange juice or tomatoes. ?Spicy food. ?Chocolate. Eat frequent small meals instead of three large meals a day. This helps prevent your stomach from getting too full. ?Eat slowly. ?Do not lie down right after eating. ?Do not eat 1 2 hours before bed. Do not drink beverages with caffeine. These include cola, coffee, cocoa, and tea. Do not drink alcohol. General instructions Take [id number] and prescription medicines only as told by your health care provider. Keep all follow-up visits as told by your health care provider. This is important. Contact a health care provider if: Your symptoms are not controlled with medicines or lifestyle changes. You are having trouble swallowing. You have coughing or wheezing that will not go away. Get help right away if: Your pain is getting worse. Your pain spreads to your arms, neck, jaw, teeth, or back. You have shortness of breath. You sweat for no reason. You feel sick to your stomach (nauseous) or you vomit. You vomit blood. You have bright red blood in your stools. You have black, tarry stools. Summary A hiatal hernia occurs when part of the stomach slides above the muscle that separates the abdomen from the chest (diaphragm). A person may be born with a weakness in the hiatus, or a weakness can develop over time. Symptoms of hiatal hernia may include heartburn, trouble swallowing, or sore throat. Management of hiatal hernia includes eating frequent small meals instead of three large meals a day. Get help right away if you vomit blood, have bright red blood in your stools, or have black, tarry stools. This information is not intended to replace advice given to you by your health care provider. Make sure you discuss any questions you have with your health care provider. Document Revised: 06/23/2022 Document Reviewed: 07/10/2021 [employer] 2022 [employer]. Follow Up Care 02/26/2023 10:24:39 With:Ramy PHILLIPS Address: [address] [place] [address], [facility] [address] [phone] Business (1) When: only if needed [facility] Clinical Note 03-12-2022 Note Date & Type [...] authenticated by: KUMAR PERALTA Date: 2022-03-12 16:56 [facility] Evaluation + Plan note Note Date & Type Note Facility Evaluation + Plan note Future Appointments Appointment Date:03/19/2023 11:00:00 AM Scheduled Provider: Location:[facility] Appointment Type:Surgery [facility] course Narrative Note Date & Type Note Facility Hospital course Narrative No data available for this section [facility] Hospital Discharge instructions Note Date & Type Note Facility Hospital Discharge instructions No data available for this section [facility] Progress note Note Date & Type Note Facility Progress note No data available for this section [facility] Summary Purpose Family History No Family History Records Found No data available for this section No data available for this section No Family History Records Found Advance Directives No Advanced Directives Records FoundNo Advanced Directives Records Found Additional Source Comments INFORMATION SOURCE (unrecogn ized section and content) DATE CREATED AUTHOR 03/27/2022 [facility] DATE CREATED AUTHOR AUTHOR'S ORGANIZ ATION 06/18/2024 [facility] Patient Care team informatio n (unrecognized section and content) Personnel Name: Erica Kitchen MD Address: Address: [address] [place] [address] Personnel Name: Erica Kitchen MD Address: Address: [address] [place] [address] Personnel Name: Erica Kitchen MD Address: Address: [address] [place] [address] Personnel Name: Erica Kitchen MD Address: Address: [address] [place] [address] FOR RECORDS PERTAINING TO PATIENTS WHO ARE [...] BE BASED ON THE PRIMARY CLINICAL RECORDS. [facility] [employer] [facility]. provides no warranty or guarantee of the accuracy or completeness of information in this document.
[2025-03-19 11:40] LABS: Hematocrit 34.8 % (36.0-48.0); Hemoglobin 11.7 g/dL (12.0-16.0); Immature Granulocytes Abs Auto 0.01 10^3/uL (0.00-0.03); Immature Granulocytes Pct Auto 0.3 % (0.0-0.5); Lymphocytes Absolute Auto 1.0 10^3/uL (1.2-3.8); Mean Corpuscular HGB Conc 33.6 g/dL (29.9-35.2); Mean Corpuscular Hemoglobin 31.6 pg (26.7-34.0); Mean Corpuscular Volume 94.1 fL (81.0-99.0); Platelet Count 276 10^3/uL (150-450); Red Blood Count 3.70 10^6/uL (4.20-5.40); White Blood Count 3.9 10^3/uL (4.0-11.0)
[2025-03-19 12:25] LABS: Alanine Aminotransferase 31 U/L (14-59); Albumin Globulin Ratio 1.1; Albumin Level 3.7 g/dL (3.4-5.0); Alkaline Phosphatase 60 U/L (46-116); Anion Gap 10.0; Aspartate Amino Transferase 24 U/L (15-37); Blood Urea Nitrogen 19.0 mg/dL (7.0-18.0); Calcium 9.2 mg/dL (8.5-10.1); Carbon Dioxide 31.2 mmol/L (21.0-32.0); Chloride 103 mmol/L (98-107); Cholesterol 211 mg/dL (<=200); Estimated GFR (African America >60 (>=60 mL/min/1.73m^2); Estimated GFR (Non-African Ame >60 (>=60 mL/min/1.73m^2); Free T3 1.43 pg/mL (2.18-3.98); Globulin 3.3 g/dL; Glucose 97 mg/dL (74-106); HDL Cholesterol 65 mg/dL (40-60); Potassium 4.2 mmol/L (3.5-5.1); Sodium 140 mmol/L (136-145); Thyroid Stimulating Hormone 2.376 uIU/mL (0.358-3.740); Total Protein 7.0 g/dL (6.4-8.2); Triglycerides 74 mg/dL (<=150); VLDL CHOLESTEROL 14.8 mg/dL
[2025-03-19 13:01] LABS: Iron 97.0 ug/dL (50.0-170.0)
== END 2025-03-19 10:56 | disposition home or self-care (01) ==
PROVIDERS: PCP Family Medicine; Visit Provider Family Medicine
DX: E03.9 Hypothyroidism, unspecified (principal); E78.2 Mixed hyperlipidemia; D50.9 Iron deficiency anemia, unspecified; K21.9 Gastro-esophageal reflux disease without esophagitis; E78.5 Hyperlipidemia, unspecified; R73.09 Other abnormal glucose; D64.9 Anemia, unspecified; R53.83 Other fatigue; E55.9 Vitamin D deficiency, unspecified
CPT/HCPCS: 36415; 80053; 80061; 82306; 83036; 83540; 84436; 84443; 84481; 85025